=== PATIENT | male | born 1965 | race Caucasian/White ===

== ENCOUNTER 2018-05-14 04:14 | Inpatient (IN) | payer MEDICARE, MEDICAID ==
[2018-05-14] MEDS ORDERED: Sodium Chloride 0.9% 1,000 ML IV SCH (05:00)
[2018-05-14 05:21] LABS: ALT (SGPT) 9 U/L (8-55); AST (SGOT) 18 U/L (5-34); Albumin 1.9 g/dL (3.5-5.0); Alkaline Phosphatase 67 U/L (40-150); Anion Gap 11 mmol/L (10-20); BUN (Urea Nitrogen) 51 mg/dL (8.9-20.6); Bilirubin, Total 0.2 mg/dL (0.2-1.2); Calc. Creatinine Clearance 0 mL/min (70-130); Calcium 7.6 mg/dL (7.8-10.44); Carbon Dioxide 18 mmol/L (22-29); Chloride 110 mmol/L (98-107); Estimated GFR-MDRD 17; Globulin 2.1 g/dL (2.4-3.5); Glucose 84 mg/dL (70-105); Potassium 5.2 mmol/L (3.5-5.1); Sodium 134 mmol/L (136-145)
[2018-05-14 05:32] LABS: Mean Corpuscular HGB CONC 32.3 g/dL (32.0-36.0); Mean Corpuscular Hemoglobin 31.7 pg (27.0-31.0); Mean Corpuscular Volume 97.9 fl (80.0-94.0); RBC Distribution Width 17.5 % (11.5-14.5); Red Blood Cell (RBC) Count 2.83 mill/uL (4.70-6.10); White Blood Cell (WBC) Count 15.3 thou/uL (4.8-10.8)
[2018-05-14 05:54] LABS: Band 19 % (5-11); Lymphocytes 1 % (21-51); MDiff Complete? YES; Monocytes 1 % (0-10); Neutrophil 79 % (42-75); PLT Morphology Comment Appears Adequate; Platelet Count 123 thou/uL (130-400)
[2018-05-14] MEDS ORDERED: Dextrose 50% Abboject 50 ML SYRINGE ONE (06:10)
[2018-05-14] MEDS ORDERED: Insulin Regular 300 UNITS/3 ML VIAL ONE ×2 (06:10→06:27)
[2018-05-14] MEDS ORDERED: Cefepime 2 GM VIAL ONE (06:10)
[2018-05-14] MEDS ORDERED: Vancomycin HCl 1 GM in Premix Bag 1 BAG IVPB SCH (06:15)
[2018-05-14 07:11] LABS: Bilirubin Negative (Negative); Blood, Urine Moderate (Negative); Glucose, Urine (Dipstick) Negative (Negative); Leukocyte Large (Negative); Nitrite Positive (Negative); Protein, Urine (Dipstick) > or equal to 300 mg/dL (Neg-Trace); Urobilinogen 0.2 mg/dL (0.2-1.0)
[2018-05-14 07:26] LABS: Clarity Opaque (Clear); RBC/HPF 0-3 HPF (0-3)
[2018-05-14 07:27] LABS: Bacteria/HPF 3+ HPF (None Seen); Squamous Epithelial 0-3 HPF (0-3); Transitional Epithelial 0-3 HPF (0-3)
--- NOTE | 2018-05-14 08:35 | RAD ---
PORTABLE CHEST ONE VIEW: Date: 05-14-18 Time: 4:27 a.m. History: Sepsis and fever. FINDINGS/IMPRESSION: Comparison made with exam of the previous day. No significant change is seen since the previous day's exam. POS: [facility]
[2018-05-14 09:28] VITALS: BMI 20.5
[2018-05-14] MEDS ORDERED: cefTRIAXone\\ROCEPHIN 1 GM in Sodium Chloride 0.9% 100 ML IVPB SCH (10:00)
[2018-05-14] MEDS ORDERED: Azithromycin 500 MG in Sodium Chloride 0.9% 250 ML 250 ML IVPB SCH (11:00)
[2018-05-14] MEDS ORDERED: traMADol HCl 50 MG TAB PO PRN ×2 (11:11→11:16)
[2018-05-14] MEDS ORDERED: Dextrose 50% Abboject 50 ML SYRINGE SLOW IVP PRN (11:11)
[2018-05-14] MEDS ORDERED: cloNIDine 0.1 MG TAB PO PRN (11:11)
[2018-05-14] MEDS ORDERED: Ondansetron HCl/PF 4 MG/2 ML Vial IVP PRN (11:11)
[2018-05-14] MEDS ORDERED: Cepastat Lozenges 1 LOZ PO PRN (11:11)
[2018-05-14] MEDS ORDERED: Ondansetron ODT 4 MG TAB PO PRN (11:11)
[2018-05-14] MEDS ORDERED: HumaLOG 300 UNITS/3 ML VIAL SC PRN ×2 (11:11)
[2018-05-14] MEDS ORDERED: Simethicone Chewable 80 MG TAB PO PRN (11:11)
[2018-05-14] MEDS ORDERED: hydrALAZINE 20 MG/ML VIAL SLOW IVP PRN (11:11)
[2018-05-14] MEDS ORDERED: Dextrose 5% in Water 1,000 ML IV PRN (11:11)
[2018-05-14] MEDS ORDERED: PROVENTIL INHALER 6.7 G (200 INHALATIONS) INH PRN (11:30)
[2018-05-14] MEDS ORDERED: Cefepime 1 GM in Sodium Chloride 0.9% 100 ML IVPB SCH (12:00)
--- NOTE | 2018-05-14 12:53 | HP ---
DATE OF ADMISSION: 05/14/2018 PRIMARY CARE PHYSICIAN: Dr. Gil at [facility] in [place], [place]. CHIEF COMPLAINT: Fever, chills and cough. HISTORY OF PRESENT ILLNESS: This is a 52-year-old male who presents to [facility] in transfer from [facility] with fever, shaking chills, gene ral weakness, and body aches. The patient was noted with temperature up to 102 degrees Fahrenheit wi th shaking chills, increased cough, shortness of breath, and chest congestion. The patient currently a resident at [facility] convalescing from recent hospitalization in [place], [place] due to acute kidney injury in the context of chronic kidney disease stage 4-5. Family reports patient underwent transient hemodialysis sessions due to worsening renal function an d was subsequently transferred to [facility] for convalescence and general conditioning. The family also reports patient has basically been hospitalized or in halfway since 10/2017 with a series of medical issues, ranging from acute kidney injury to infections and ulc erations of the lower extremities. The patient recently underwent right [id number] amputation du e to severe diabetic foot ulcer and gangrenous changes. The patient currently receiving general care at [facility]; however, was noted in the last 24 hours with increased shor tness of breath, cough, and chest imaging showing evidence of a right-sided pneumonia with effusion. In the emergency room, the patient underwent general evaluation meeting sepsis criteria with elevate d temperature, tachypnea, tachycardia, and leukocytosis. Chest imaging was performed showing a right -sided infiltrate with effusion and urinalysis was suspicious for infectious process. The patient re ceived intravenous fluids as well as IV antibiotic therapy to include cefepime and vancomycin as well as insulin 10 units subcutaneously x1 and 1 amp of D50. The patient was transferred to the medical floor for further evaluation. PAST MEDICAL HISTORY: 1. Diabetes mellitus type 1 with chronic kidney disease stage 5. 2. Benign prostatic hyperplasia. 3. Right eye blindness secondary to diabetic retinopathy. 4. History of multiple decubitus ulcerations and gangrenous changes of the lower extremities. 5. Hypertension. 6. Hyperlipidemia. 7. Hypothyroidism. 8. Peripheral vascular disease. 9. Chronic anemia secondary to chronic kidney disease. 10. Chronic immunosuppressive therapy. 11. Smokeless tobacco use. PAST SURGICAL HISTORY: 1. Status post laser surgery to bilateral eyes. 2. Status post bilateral below the knee amputations. 3. Status post tonsillectomy. 4. Status post temporary hemodialysis catheter placement. 5. Status post left upper extremity AV fistula placement. 6. Status post renal and pancreatic transplant. CURRENT MEDICATIONS: 1. Albuterol sulfate 2 puffs inhaled q.4 hours p.r.n. 2. Amlodipine 5 mg p.o. daily. 3. Aspirin 81 mg 1 tab p.o. daily. 4. Calcium carbonate 500 mg 1-2 tabs p.o. q.i.d. p.r.n. 5. Clonidine 0.1 mg p.o. every 6 hours p.r.n. 6. Guaifenesin syrup 200 mg p.o. q.4 hours p.r.n. 7. Humulin R sliding scale t.i.d. with meals. 8. Levothyroxine 125 mcg p.o. daily. 9. Multivitamin 1 tab p.o. daily. 10. Protonix 40 mg 1 tab p.o. daily. 11. MiraLax 17 grams p.o. daily. 12. Pravachol 20 mg p.o. at bedtime. 13. Prednisone 10 mg p.o. daily. 14. Sertraline 100 mg p.o. daily. 15. Prograf 0.5 mg p.o. b.i.d. 16. Flomax 0.4 mg p.o. daily. 17. Tramadol 50 mg 1-2 tabs p.o. q.i.d. p.r.n. 18. Trazodone 50 mg p.o. at bedtime. ALLERGIES: 1. IODINE. 2. NSAIDS. 3. PENICILLIN. 4. SULFA. FAMILY HISTORY: Positive for diabetes mellitus. SOCIAL HISTORY: Resides in [facility]. Chews tobacco daily. No alcohol o r illicit drug use. Disabled. Nonambulatory status. Accompanied by his sister and mother in the spital. REVIEW OF SYSTEMS: The following complete review of systems was negative, unless otherwise mentioned in the HPI or below: Constitutional: Weight loss or gain, ability to conduct usual activities. Skin: Rash, itching. Eyes: Double vision, pain. ENT/Mouth: Nose bleeding, neck stiffness, pain, tenderness. Cardiovascular: Palpitations, dyspnea on exertion, orthopnea. Respiratory: Shortness of breath, wheezing, cough, hemoptysis, fever or night sweats. Gastrointestinal: Poor appetite, abdominal pain, heartburn, nausea, vomiting, constipation, or diarr hea. Genitourinary: Urgency, frequency, dysuria, nocturia. Musculoskeletal: Pain, swelling. Neurologic/Psychiatric: Anxiety, depression. Allergy/Immunologic: Skin rash, bleeding tendency. Otherwise negative except as stated per HPI. PHYSICAL EXAMINATION: VITAL SIGNS: Currently, blood pressure 137/73, pulse 101, respiratory rate 26, temperature 98.8 degr ees Fahrenheit, T-max of 100.7 degrees Fahrenheit, O2 saturation 96% on 1 liter per minute by nasal c annula. GENERAL APPEARANCE: This is a 52-year-old male, alert and oriented x3, pleasant, in mild t o moderate distress. HEENT: Pupils are equal, round, and reactive to light and accommodation. Extraocular muscles are in tact. No scleral icterus. No conjunctival injection. Nares patent. OP is clear. Poor dentition w ith advance periodontal disease. NECK: Supple, no cervical adenopathy, no thyromegaly, no carotid bruits, no JVD appreciated. Cervic al spine with full active and passive range of motion. No meningeal signs appreciated. CHEST: Coarse breath sounds bilaterally, right greater than left. Diminished breath sounds in the r ight base. Transmitted coarse sounds from the central and upper airway. CARDIOVASCULAR: S1 and S2 with tachycardia. No murmur, rub or gallop appreciated. ABDOMEN: Rounded, soft, nontender, and nondistended. Bowel sounds are positive in all four quadrant s. There is no hepatosplenomegaly, no abdominal bruits, no rebound or guarding appreciated. EXTREMITIES: Warm and dry with fair turgor. Bilateral below the knee amputations noted. Right lowe r extremity with stump intact and surgical incision with julien in place. Mild erythema to the medi al aspect of the incision. No expressible discharge. Pulses diminished at the popliteal arteries bi laterally. NEUROLOGIC: Cranial nerves II-XII are grossly intact. Not observed ambulatory during this exam. No gross focal deficits appreciated. PERTINENT LABORATORY DATA AND IMAGING DATA: Sodium 134, potassium 5.2, chloride 110, CO2 of 18, BUN 51, creatinine 3.87, estimated GFR of 17, glucose 84, lactic acid level 1.0, calcium 7.6. LFTs withi n normal limits. CBC showed white blood cell count of 15.3, hemoglobin 9, hematocrit 28, MCV 98, refugio telet count 123 with 79% neutrophils and 19% bands. Urinalysis shows positive protein, moderate bloo d, positive nitrite and leukocyte esterase with greater than 50 to too numerous to count WBCs per hig h powered field. Blood culture x1 dated 05/13/2018 showed no growth to date. Stool Hemoccult positi ve x1 on 05/14/2018. Portable chest x-ray dated 05/13/2018 showed bilateral pleural effusions, right greater than left with nonspecific density in the right lung base. EKG dated 05/14/2018 by my inter pretation shows sinus mechanism with heart rates in the 80s. Attenuated R waves noted in the precord ial leads. Normal axis. No acute ST-T wave changes appreciated. ASSESSMENT AND PLAN: 1. Sepsis. Patient will be admitted to the medical floor. Suspect secondarily to urinary tract bonita rce in addition to pneumonia. We will continue general sepsis protocol. Continue intravenous normal saline at 125 mL per hour. Continue cefepime 2 grams IV q.12 hours with additional vancomycin 1 gra m daily, with pharmacy to renally dose. Blood and urine cultures pending. 2. Healthcare associated pneumonia. We will continue aggressive pulmonary supportive measures. Duo Nebs q.4 hours p.r.n. Continue cefepime and vancomycin as outlined previously. Mucolytic agents and cough suppressants. Continue oxygen p.r.n. to maintain O2 saturations greater than or equal to 90%. 3. Urinary tract infection. The patient with intermittent bladder, self catheterization as likely u nderlying etiology. The patient also with a history of urinary retention. We will continue intermit tent self catheterizations and await final urine culture results. Continue cefepime 2 grams IV q.12 hours. Consider Urology consultation. 4. Acute kidney injury on chronic kidney disease stage 4-5. We will continue intravenous fluids as outlined previously. Avoid nephrotoxic agents and contrast media. Consider Nephrology consultation if renal function does not improve in the next 24 hours. 5. Hyperkalemia. Mild. Suspect mediated with current infection in conjunction with dehydration and chronic kidney disease. Continue IV fluids as outlined previously. Repeat potassium level in the a .m. 6. Chronic macrocytic anemia. We will continue serial hemoglobin and hematocrit monitoring. No cur rent evidence of active blood loss. Suspect multifactorial in conjunction with advanced chronic kidn ey disease. 7. Status post right [id number] amputation, stable currently. Continue local wound care and [facility] for evaluation. Pain control as clinically indicated. 8. Diabetes mellitus type 1, insulin requiring. Continue insulin sliding scale for reflexive covera ge. ADA diet. Serial Accu-Cheks. 9. Chronic Immunosuppression. Continue Prograf 0.5 mg p.o. b.i.d. Continue prednisone 10 mg p.o. d aily. 10. Prophylaxis. Hold sequential compression devices secondary to bilateral below the knee amputati ons. Heparin 5000 units subcutaneously b.i.d. Protonix 40 mg p.o. daily. Wound Care consult. 11. Code status is FULL. Surrogate medical decision maker is patient's sister.
[2018-05-14] MEDS: Acetaminophen 500 MG TAB PO PRN ×2 (13:11→23:19)
[2018-05-14] MEDS: Sodium Chloride 0.9% 1,000 ML IV SCH ×2 (16:24→21:08)
[2018-05-14] MEDS: Cefepime 1 GM in Sodium Chloride 0.9% 100 ML IVPB SCH (18:23)
[2018-05-14] MEDS ORDERED: Famotidine 20 MG TAB PO SCH (21:00)
[2018-05-14] MEDS ORDERED: guaiFENesin/DM ER PO SCH (21:00)
[2018-05-14] MEDS ORDERED: Cefepime 2 GM in Sodium Chloride 0.9% 100 ML IVPB SCH (21:00)
[2018-05-14] MEDS: traZODone HCl 50 MG TAB PO SCH (21:06)
[2018-05-14] MEDS: Famotidine 20 MG TAB PO SCH (21:06)
[2018-05-14] MEDS: Calcium Carbonate + Vit D 250 MG TAB PO SCH (21:06)
[2018-05-14] MEDS: Tacrolimus 0.5 MG CAP PO SCH (21:06)
[2018-05-14] MEDS: Heparin 5,000 UNITS/ML VIAL SC SCH (21:08)
[2018-05-14] MEDS: Benzonatate 100 MG CAP PO PRN (22:20)
[2018-05-14] MEDS ORDERED: guaiFENesin/Codeine Phosphate 200 mg/20 mg 10 ml UD Cup PO PRN (23:36)
[2018-05-14] MEDS ORDERED: guaiFENesin ER 600 MG TAB PO SCH (23:45)
[2018-05-15 05:12] LABS: ALT (SGPT) 9 U/L (8-55); AST (SGOT) 10 U/L (5-34); Albumin 1.8 g/dL (3.5-5.0); Alkaline Phosphatase 69 U/L (40-150); Anion Gap 10 mmol/L (10-20); BUN (Urea Nitrogen) 55 mg/dL (8.9-20.6); Bilirubin, Total 0.2 mg/dL (0.2-1.2); Calc. Creatinine Clearance 19 mL/min (70-130); Calcium 7.2 mg/dL (7.8-10.44); Carbon Dioxide 17 mmol/L (22-29); Chloride 109 mmol/L (98-107); Estimated GFR-MDRD 14; Globulin 1.9 g/dL (2.4-3.5); Glucose 78 mg/dL (70-105); Protein, Total 3.7 g/dL (6.0-8.3); Sodium 131 mmol/L (136-145)
[2018-05-15] MEDS: Vancomycin HCl 500 MG in Sodium Chloride 0.9% 100 ML IVPB SCH (05:53)
[2018-05-15] MEDS: Levothyroxine Sodium 125 MCG TAB PO SCH (05:53)
[2018-05-15] MEDS: Sodium Chloride 0.9% 1,000 ML IV SCH ×4 (05:55→22:55)
[2018-05-15] MEDS: Cefepime 1 GM in Sodium Chloride 0.9% 100 ML IVPB SCH ×2 (06:02→18:05)
[2018-05-15 06:12] LABS: Anisocytosis SLIGHT = 6-15 cells (100X) (0-5/hpf); Band 48 % (5-11); Hemoglobin 8.4 g/dL (14.0-18.0); MDiff Complete? YES; Mean Corpuscular HGB CONC 31.6 g/dL (32.0-36.0); Mean Corpuscular Hemoglobin 31.1 pg (27.0-31.0); Mean Corpuscular Volume 98.5 fl (80.0-94.0); Mean Platelet Volume 8.3 fL (7.4-10.4); Metamyelocyte 4 % (0-0); Monocytes 2 % (0-10); Neutrophil 46 % (42-75); PLT Morphology Comment Appears Decreased; Platelet Count 125 thou/uL (130-400); RBC Distribution Width 17.7 % (11.5-14.5); Red Blood Cell (RBC) Count 2.68 mill/uL (4.70-6.10); Schistocytes SLIGHT = 2-5 cells (100X) (0-1/hpf); Tear Drops SLIGHT = 2-5 cells (100X) (0-1/hpf); White Blood Cell (WBC) Count 10.9 thou/uL (4.8-10.8)
[2018-05-15] MEDS ORDERED: Sodium Chloride 0.9% 1,000 ML IV SCH ×2 (08:00→10:15)
[2018-05-15] MEDS: Tamsulosin HCl 0.4 MG CAP PO SCH (08:49)
[2018-05-15] MEDS: Amlodipine 5 MG TAB PO SCH (08:49)
[2018-05-15] MEDS: Multivitamin W/ Minerals 1 TAB PO SCH (08:49)
[2018-05-15] MEDS: guaiFENesin ER 600 MG TAB PO SCH ×2 (08:50→22:40)
[2018-05-15] MEDS: predniSONE 20 MG TAB PO SCH (08:52)
[2018-05-15] MEDS: Polyethylene Glycol 3350 17 GM Packet PO SCH (08:53)
[2018-05-15] MEDS ORDERED: Vancomycin HCl 1 GM in Sodium Chloride 0.9% 250 ML 250 ML IVPB SCH (09:00)
[2018-05-15] MEDS: Heparin 5,000 UNITS/ML VIAL SC SCH ×2 (09:11→22:41)
[2018-05-15] MEDS ORDERED: Hydrocortisone Sod Succ/PF 100 mg/2 ml Vial IVP SCH (09:30)
--- NOTE | 2018-05-15 09:50 | PDOC.PN ---
- Subjective Encounter Start Date: 05/15/18 Encounter Start Time: 09:00 Subjective: f/u for sepsis secondary to UTI and suspected PNA. Receiving Vancomycin -: and Cefepime and Ucx with GNR. Nsg reports hypotension confirmed with -: multiple readings. - Objective Resuscitation Status: Resuscitation Status FULL:Full Resuscitation MAR Reviewed: Yes Vital Signs & Weight: Vital Signs (12 hours) Temp Pulse Resp BP Pulse Ox 05/15/18 09:37 83 18 98 05/15/18 08:49 90 05/15/18 07:15 99.0 F 90 24 H 97 05/15/18 06:05 95 16 97 05/15/18 04:00 99.5 F 96 20 141/69 H 96 05/15/18 02:10 100 14 94 L 05/14/18 22:30 97 18 98 Weight Weight 147 lb 9 oz I&O: 05/14/18 05/15/18 05/16/18 06:59 06:59 06:59 Intake Total 1574 Output Total 5 Balance 1569 Result Diagrams: 05/15/18 04:10 05/15/18 15:09 Additional Labs: Accuchecks 05/15/18 05/14/18 05/14/18 05:17 20:07 16:25 POC Glucose 84 98 87 05/14/18 11:49 POC Glucose 68 L Microbiology 05/14/18 18:08 Stool C. difficile GDH Antigen & Toxins - Final 05/14/18 07:10 Stool - Pending Stool Occult Blood (MATTI) - Final 05/14/18 06:35 Urine voided Urine Culture - Preliminary Gram Negative Rakan 05/14/18 04:59 Venous blood - Right Arm Blood Culture - Preliminary Specimen has been received and culture in progress. No Growth to date. 05/14/18 04:55 Venous blood - Right Hand Blood Culture - Preliminary Specimen has been received and culture in progress. No Growth to date. Laboratory Tests 05/14/18 05/14/18 05/15/18 05:01 05:01 04:10 WBC 15.3 H Hgb 9.0 L Plt Count 123 L Neutrophils % (Manual) 79 H 46 Band Neuts % (Manual) 19 H 48 H Sodium 134 L Potassium 5.2 H Carbon Dioxide 18 L BUN 51 H Creatinine 3.87 H Radiology Reviewed by me: Yes (PCXR - bilat pleural effusion R>L) EKG Reviewed by me: Yes (NSR, no acute ST-T wave changes) Phys Exam - Physical Examination alert when questioned, answers questions, tachypnea HEENT: PERRLA, oral pharynx no lesions Neck: no nodes, no JVD, supple, full ROM coarse breath sounds bilat R>L, diminished in bases Respiratory: no wheezing S1, S2 Cardiovascular: RRR, no significant murmur, no rub, gallop Gastrointestinal: soft, non-tender, no distention, positive bowel sounds RUE edema No peripheral LE edema, Bilat BKA's intact answers questions when directly engaged Neurological: moves all 4 limbs Psychiatric: A&O x 3 Skin: no rash, normal turgor, cap refill <2 seconds Dx/Plan (1) Septic shock Code(s): A41.9 - SEPSIS, UNSPECIFIED ORGANISM; R65.21 - SEVERE SEPSIS WITH SEPTIC SHOCK Status: Acute Comment: Transfer to CCU given persistent hypotension, may need pressor support, Hydrocortisone 100mg IV now and 50mg IV q8h, check cortisol level, Critical care consult, continue Vancomycin and Cefepime (2) Pneumonia Code(s): J18.9 - PNEUMONIA, UNSPECIFIED ORGANISM Status: Acute Qualifiers: Pneumonia type: due to unspecified organism Laterality: right Lung location: lower lobe of lung Qualified Code(s): J18.1 - Lobar pneumonia, unspecified organism Comment: Suspected with possible gm + cocci, continue Cefepime and Vancomycin, healthcare associated given chcf care in SNF, check ABG and PCXR today (3) UTI (urinary tract infection) Status: Acute Comment: >100K GNR on initial Ucx, continue Cefepime currently and await final Ucx results, place Bunn catheter today for strict I/O's (4) ARASH (acute kidney injury) Code(s): N17.9 - ACUTE KIDNEY FAILURE, UNSPECIFIED Status: Acute Comment: Worsening despite treatment, likely ATN, consult Nephrology today, serial monitoring, avoid nephrotoxic meds, renal dosing of current abx (5) CKD (chronic kidney disease) stage 5, GFR less than 15 ml/min Code(s): N18.5 - CHRONIC KIDNEY DISEASE, STAGE 5 Status: Chronic Comment: See above, concern for needing HD (6) Metabolic acidosis Code(s): E87.2 - ACIDOSIS Status: Acute Comment: See above, may benefit from bicarbonate or HD (7) Hyponatremia Code(s): E87.1 - HYPO-OSMOLALITY AND HYPONATREMIA Status: Acute Comment: Likely due to increased volume replacement, serial monitoring (8) Hyperkalemia Code(s): E87.5 - HYPERKALEMIA Status: Acute Comment: Improved, multifactorial including ARASH - Plan bunn catheter, continue antibiotics, PT/OT, psychiatric social worker supervisor, respiratory therapy Transfer to CCU due to septic shock and potential for pressor support -: Continue Vancomycin and Cefepime -: Consult Nephrology and Pulmonology today -: 2D echo for EF determination -: EKG now, Troponin I q3h * PCXR pending * AM lab: CMP, CBC, Mg++, PO3
[2018-05-15 10:04] LABS: CO2 Tension 28.6 mmHg (35.0-45.0); O2 Tension (PaO2) 74.7 mmHg (80.0-100.0); pH, Arterial 7.34 (7.35-7.45)
[2018-05-15 10:05] LABS: Actual Bicarbonate (HCO3a) 14.9 mEq/L (22-28); Base Excess (BEa) -9.9 mEq/L (-2.0 to +3.0); Calcium, Ionized 1.1 mmol/L (1.12-1.30); Hemoglobin (Hb) 7.8 g/dL (14.0-18.0)
[2018-05-15 10:06] LABS: Puncture Site RRA
[2018-05-15] MEDS: Calcium Carbonate + Vit D 250 MG TAB PO SCH ×2 (10:09→22:41)
[2018-05-15 10:41] LABS: Magnesium 1.4 mg/dL (1.6-2.6); Phosphorus 3.6 mg/dL (2.3-4.7)
--- NOTE | 2018-05-15 11:52 | RAD ---
CHEST 1 VIEW: Date: 05/15/18 HISTORY: Dyspnea. Follow-up. COMPARISON: 05/14/18. FINDINGS: Cardiac silhouette magnified and partially obscured by increasing right pleural fluid. Atelectasis ri ght lung results in slight rightward shift of the mediastinum. Pulmonary vasculature remains engorged . Left pleural fluid has increased slightly. monitoring engineer leads overlie the chest. IMPRESSION: Increasing bilateral pleural fluid. POS: [facility]
[2018-05-15] MEDS: Tacrolimus 0.5 MG CAP PO SCH ×2 (12:01→22:40)
[2018-05-15 12:42] LABS: Troponin I 0.035 ng/mL (< 0.028)
--- NOTE | 2018-05-15 13:40 | CON ---
DATE OF CONSULTATION: 05/15/2018 CONSULTING PHYSICIAN: Dr. Smith. REASON FOR CONSULTATION: Acute kidney injury, history of renal transplant immunosuppression. HISTORY OF PRESENT ILLNESS: This is a 52-year-old male with history of chronic kidney disease on kelvin al transplant, recently had few dialysis, type 2 diabetes, BPH, hypertension, hyperlipidemia, hypothy roidism, peripheral vascular disease, chronic anemia, who came to the hospital with fever, chills, an d cough. He was in rehab and was transferred over here. His creatinine was found to be 4.37, which was 3.8 and his baseline is around 2.8-3.2. The patient was also very hypotensive on review of the r ecords. His blood pressure was 70s/30s and 60s/30s. The patient is feeling better now. Blood press ure was 90s. He is on IV fluids. He was transferred to the critical care unit this morning. The pa eric is on Prograf and prednisone. PAST MEDICAL HISTORY: Positive for type 1 diabetes, chronic kidney disease stage 5, status post meño l transplant, benign prostatic hypertrophy, right eye blindness, history of multiple decubitus ulcers , hypertension, hyperlipidemia, hypothyroidism, peripheral vascular disease, anemia, chronic immunosu ppression. PAST SURGICAL HISTORY: Laser surgery, bilateral below knee amputation, post-tonsillectomy, dialysis catheter placement, AV fistula placement, pancreatic and renal transplant. HOME MEDICATIONS: Albuterol, amlodipine, aspirin, calcium carbonate, clonidine, guaifenesin syrup, H umulin R, levothyroxine, multivitamin, Protonix, MiraLax, Pravachol, prednisone, sertraline, Prograf, Flomax, tramadol and trazodone. ALLERGIES: To IODINE, NSAIDS, PENICILLIN, AND SULFA. FAMILY HISTORY: Positive for diabetes. SOCIAL HISTORY: He chews tobacco. No alcohol or illicit drug abuse. REVIEW OF SYSTEMS: The following complete review of systems was negative, unless otherwise mentioned in the HPI or below: Constitutional: Weight loss or gain, ability to conduct usual activities. Skin: Rash, itching. Eyes: Double vision, pain. ENT/Mouth: Nose bleeding, neck stiffness, pain, tenderness. Cardiovascular: Palpitations, dyspnea on exertion, orthopnea. Respiratory: Shortness of breath, wheezing, cough, hemoptysis, fever or night sweats. Gastrointestinal: Poor appetite, abdominal pain, heartburn, nausea, vomiting, constipation, or diarr hea. Genitourinary: Urgency, frequency, dysuria, nocturia. Musculoskeletal: Pain, swelling. Neurologic/Psychiatric: Anxiety, depression. Allergy/Immunologic: Skin rash, bleeding tendency. PHYSICAL EXAMINATION: GENERAL: This is a well-built male in no apparent distress. VITAL SIGNS: Temperature 97.7, pulse 91, respiratory 18, blood pressure 104/24. HEENT: Atraumatic, normocephalic. Oral mucosa is moist. NECK: Supple. CARDIOVASCULAR: S1, S2 heard. Rate and rhythm regular. RESPIRATORY: Clear. GASTROINTESTINAL: Abdomen is soft. MUSCULOSKELETAL: No tenderness, no edema. DERMATOLOGIC: No skin rash. NEUROLOGIC: Alert, awake. PSYCHIATRIC: Mood and affect normal. LABORATORY DATA: Hemoglobin is 8.4, potassium 5.0, BUN is 55, creatinine is 4.3, and albumin is 1.8. ASSESSMENT AND PLAN: 1. Acute kidney injury most likely from hypoperfusion and low effective circulating volume. His blo od pressure was in 70s/30s, so we will continue supportive care including antibiotics, rule out infec tion and continue hydration as tolerated. 2. Hyperkalemia, stable. No acute indication for dialysis. 3. Hyponatremia. 4. Metabolic acidosis. Lactate was 1.0. 5. Severe hypoalbuminemia. 6. Anemia. We will monitor, rule out any bleed. 7. History of renal transplant. Continue Prograf. We will check Prograf level. We will also invol ve ID to rule out any other further infections including CMV. Plan is to continue antibiotics. ID consult and hydration as tolerated. Continue immunosuppression with close monitoring of the levels. No indication for dialysis. Family is at the bedside including his parents and updated about the plan. We will follow. Thank you for the consult.
[2018-05-15] MEDS ORDERED: Magnesium 2 GM/NS 0.9% 100 ML 2 GM in Premix Bag 1 BAG IVPB SCH (13:45)
--- NOTE | 2018-05-15 14:27 | EKG ---
Test Reason : Blood Pressure : / mmHG Vent. Rate : 087 BPM Atrial Rate : 087 BPM P-R Int : 114 ms QRS Dur : 082 ms QT Int : 368 ms P-R-T Axes : 041 011 023 degrees QTc Int : 442 ms Normal sinus rhythm Low voltage QRS Cannot rule out Anterior infarct (cited on or before 03-MAR-2008) Abnormal ECG When compared with ECG of 14-MAY-2018 04:25, (Unconfirmed) No significant change was found Confirmed by DUKE SANDERSON ([id number]) on 05/15/2018 2:26:59 PM Referred By: ULISSES Confirmed By:DUKE SANDERSON
[2018-05-15 15:41] LABS: Anion Gap 13 mmol/L (10-20); BUN (Urea Nitrogen) 54 mg/dL (8.9-20.6); Calc. Creatinine Clearance 19 mL/min (70-130); Carbon Dioxide 15 mmol/L (22-29); Chloride 110 mmol/L (98-107); Estimated GFR-MDRD 15; Glucose 103 mg/dL (70-105); Sodium 133 mmol/L (136-145)
[2018-05-15 15:47] LABS: Troponin I 0.017 ng/mL (< 0.028)
[2018-05-15] MEDS: Hydrocortisone Sod Succ/PF 100 mg/2 ml Vial IVP SCH (18:06)
--- NOTE | 2018-05-15 18:25 | CON ---
DATE OF CONSULTATION: 05/15/2018 Mr. Bro is a very pleasant, but unfortunate 52-year-old male who has all of the complications as sociated with having diabetes for almost his entire life. Apparently, recently he had a [id number] amputation on the right in [place] and was discharged to [facility] and then transferred over here for fever and a drop in his blood pressure. He has clinically improved after transfer to the unit with volume resuscitation today. PAST MEDICAL HISTORY: Remarkable for, 1. Diabetes. 2. Chronic kidney disease, recently transiently dialyzed. 3. History of renal transplantation in [place]. 4. History of benign prostatic hypertrophy. 5. History of blindness of his right eye. 6. History of decubitus ulcers. 7. Hypertension. 8. Lipid disorder. 9. Hypothyroidism. 10. Diabetic vascular disease. 11. Status post both lower extremity amputations below the knee. 12. History of tonsillectomy. 13. History of vascular access placement. MEDICATIONS: Prior to admission, he was on albuterol, amlodipine, aspirin, calcium, clonidine, guaif enesin, insulin, Synthroid, Protonix, MiraLax, Pravachol, prednisone, sertraline, Prograf, Flomax, tr amadol, and trazodone. ALLERGIES: Reports allergies to IODINE, NONSTEROIDALS, PENICILLIN, and SULFA. FAMILY HISTORY: Positive for diabetes. SOCIAL HISTORY: He is a nonsmoker, nondrinker. He does chew tobacco. He does not use drugs. REVIEW OF SYSTEMS: Ten points are otherwise negative. PHYSICAL EXAMINATION: GENERAL: He is very pleasant, cooperative. VITAL SIGNS: Blood pressure is 99/60, heart rate 83, respiratory rates of 20s, oximetry is 97%. GENERAL: He is in no distress. HEENT: Sclerae are anicteric. His extraocular movements are full. NECK: Supple. LUNGS: Clear anteriorly. HEART: Regular rhythm. S1 and S2 are normal. ABDOMEN: Soft. EXTREMITIES: His incision is not erythematous in his right lower extremity. LABORATORY AND X-RAY FINDINGS: Chest radiograph shows bilateral effusions. Microbiology shows gram- negative kenneth in his urine. Blood cultures are negative so far. White count 10.9, hemoglobin 8.4, platelets 125. Sodium 131, potassium 5, chloride 109, bicarbonate 17, BUN 55, creatinine 4.3. Urinalysis shows significant proteinuria, too numerous to count white ce lls. IMPRESSION: 1. Febrile illness, possibly secondary to urinary tract infection. 2. ? nephrotic range proteinuria. He has greater than 300 mg/dL protein in his urine. 3. Pleural effusions, most likely associated with his renal failure. Coexisting cardiomyopathy cert ainly could be a factor as well. There is no echocardiogram so far. A cortisol level was done this morning, but he was already on steroids, so this would not be reliable . I suspect the urinary tract infection is the source of his fever. I doubt he has pneumonia. I will be happy to follow with the other physician's caring for him. His antibiotics will be simplified onc e pathogen has been identified. Given his recent long hospitalization, there is pretty good chance t his would be a drug-resistant organism. He does however appear to be clinically improved. 70-minute consult, greater than 50% of the time was spent in coordinating care on the unit.
[2018-05-15] MEDS: traZODone HCl 50 MG TAB PO SCH (22:40)
[2018-05-15] MEDS: Famotidine 20 MG TAB PO SCH (22:40)
--- NOTE | 2018-05-16 01:43 | CON ---
DATE OF CONSULTATION: 05/15/2018 REASON FOR CONSULTATION: Sepsis. HISTORY OF PRESENT ILLNESS: A 52-year-old patient with a history of type 1 diabetes mellitus, henry swanson, which has been complicated by nephropathy, prior renal and pancreatic transplant, peripheral vascular disease which culminated in bilateral BK amputations recently at [facility] and [facility] in [place]. During that visit, he developed acute renal failure and required temporary dialysis replacement, whi ch now has been discontinued. He was transferred to [facility] and has been there si [facility] the beginning of May. On 05/06, the nursing staff started performing in and out catheterization because of urinary retention and then on the day of admission, developed fever, general malaise and temperature of 102, cough, chest congestion. He was transferred to the hospital. Initial findings w ith a blood pressure 130/70, pulse 101, respirations 26, temperature 98.8 and then 100.7, O2 sat 96%. He appeared alert and oriented, mild distress. The chest with coarse breath sounds. Heart exam sh owed no murmurs. Abdomen is soft and nontender. LABORATORY DATA: Initial labs: creatinine 3.87. Lactic acid 1.0, calcium 7.6. CBC with white cell count 15.3, hemoglobin 9, platelet count 123,000, 19% bands. Urinalysis with greater than 50 wbc's p er high-power field. The patient was admitted to the ICU and given vancomycin and cefepime. Currently, he is still in the ICU, he is stable, not on pressors and is breathing on his own. He is sleepy, we will wake up. Est ablish eye contact and answer questions, but falls back asleep immediately. He has had no diarrhea. An indwelling Anand has been inserted. The patient has a peripheral IV access in the right upper ex tremity. He denies headaches. He has severe visual impairment from his diabetes. No sore throat, n o chest pain, no cough, no back pain, and no abdominal pain. PAST MEDICAL HISTORY: Type 1 diabetes mellitus, peripheral vascular disease, bilateral BKAs, renal p ancreatic transplantation, decubitus ulcers, hypertension, hyperlipidemia, hypothyroidism. PAST SURGICAL HISTORY: Laser surgery to retina; BKA surgery; tonsillectomy; hemodialysis catheter pl acement; left upper extremity AV fistula placement, which is still functional. MEDICATIONS: Currently on antimicrobials mentioned above, albuterol, Norvasc, clonidine, Pepcid, glu cagon, Mucinex, hydralazine, Solu-Cortef. At home, he takes a low dose of prednisone for his transpl ants, ondansetron, pantoprazole, PEG, sertraline, simethicone, tacrolimus. FAMILY HISTORY: Noncontributory. PHYSICAL EXAMINATION: VITAL SIGNS: T-max 102 on arrival, he is currently afebrile. His blood pressure 140/60, pulse 79, O 2 sat 98%. EXTREMITIES: Patient has stump for the right BKA, still with stitches, appears dry. No drainage. E rythema in the left BKA stump over the knee, shallow ulceration, irregular shaped in the left side of the presacral region. HEENT: No lymphadenopathy. The right eye intraocular media was opacified and the eyes obviously, am aurotic. Left eye has a reactive pupil about 2 mm. NECK: Supple. No jugular vein distention. LUNGS: With symmetric air entry. HEART: S1, S2, regular rate without murmurs. ABDOMEN: Soft, without tenderness. No bladder distention. GENITOURINARY: The urine is clear. MUSCULOSKELETAL: No joint inflammatory activity. Popliteals are faintly palpable. NEUROLOGIC: He is drowsy, but arousable, follows commands, appears to be oriented. LABORATORY AND DIAGNOSTIC DATA: White cell count was 15, now 10, hemoglobin 8.4, MCV 98, platelets 1 25,000. Arterial blood gas pH 7.34, pCO2 of 20, pO2 of 74 and sodium 133, creatinine 4.32, which is higher than his admit creatinine of 3.87, albumin was 1.9, AST 10, ALT 9, alkaline phosphatase 69, bi lirubin 0.2. Urinalysis with greater than 50 wbc's. Microbiology with gram negative kenneth isolated fr om urine culture, C. diff antigen and toxin negative. Two sets of blood cultures thus far negative. Chest x-ray with pleural fluid, but no infiltrates. ASSESSMENT: 1. Pancreatic renal transplant with worsening renal function temporarily on dialysis at [facility] in [place] after the [id number] amputation on the right side. 2. Transfer from rehab because of concern with infection, possible sepsis. 3. Urinary retention with recent initiation of in and out catheterization at rehabilitation. 4. Abnormal urinalysis with neutrophilia in the peripheral blood. DISCUSSION: Differential diagnosis includes invasive UTI is the most likely scenario with possible p yelonephritis. He does have in and out catheterization requirement because of neurogenic bladder. W e will need to evaluate his CT stone protocol to evaluate for obstruction, hydronephrosis, and the bl adder. Continue antimicrobial therapy as currently. Likely be able to discontinue vancomycin tomorr ow. Hopefully, organism will not have a resistant profile that would mandate IV therapy for continua tion of treatment. Continue monitoring blood cultures to rule out bacteremia.
[2018-05-16] MEDS: Hydrocortisone Sod Succ/PF 100 mg/2 ml Vial IVP SCH ×2 (02:51→10:38)
[2018-05-16] MEDS: Levothyroxine Sodium 125 MCG TAB PO SCH (05:23)
[2018-05-16] MEDS: Cefepime 1 GM in Sodium Chloride 0.9% 100 ML IVPB SCH ×2 (05:23→18:41)
[2018-05-16 05:40] LABS: Vancomycin, Trough 18.1 ug/mL
[2018-05-16] MEDS: Vancomycin HCl 500 MG in Sodium Chloride 0.9% 100 ML IVPB SCH (06:09)
[2018-05-16 07:37] LABS: ALT (SGPT) 10 U/L (8-55); AST (SGOT) 9 U/L (5-34); Albumin 2.1 g/dL (3.5-5.0); Alkaline Phosphatase 86 U/L (40-150); Anion Gap 14 mmol/L (10-20); BUN (Urea Nitrogen) 58 mg/dL (8.9-20.6); Bilirubin, Total 0.2 mg/dL (0.2-1.2); Calc. Creatinine Clearance 19 mL/min (70-130); Calcium 7.5 mg/dL (7.8-10.44); Carbon Dioxide 14 mmol/L (22-29); Chloride 112 mmol/L (98-107); Estimated GFR-MDRD 14; Globulin 2.4 g/dL (2.4-3.5); Glucose 117 mg/dL (70-105); Potassium 4.9 mmol/L (3.5-5.1); Protein, Total 4.5 g/dL (6.0-8.3); Sodium 135 mmol/L (136-145)
[2018-05-16] MEDS: Calcium Carbonate + Vit D 250 MG TAB PO SCH ×2 (08:33→21:44)
[2018-05-16] MEDS: Tamsulosin HCl 0.4 MG CAP PO SCH (08:34)
[2018-05-16] MEDS: guaiFENesin ER 600 MG TAB PO SCH ×2 (08:34→21:28)
[2018-05-16] MEDS: Multivitamin W/ Minerals 1 TAB PO SCH (08:34)
[2018-05-16] MEDS: Heparin 5,000 UNITS/ML VIAL SC SCH ×2 (08:35→21:29)
[2018-05-16] MEDS: Tacrolimus 0.5 MG CAP PO SCH ×2 (08:35→21:29)
[2018-05-16] MEDS: Polyethylene Glycol 3350 17 GM Packet PO SCH ×2 (08:35→08:42)
[2018-05-16 09:02] LABS: Hemoglobin 9.4 g/dL (14.0-18.0); Mean Corpuscular HGB CONC 31.1 g/dL (32.0-36.0); Mean Corpuscular Hemoglobin 30.7 pg (27.0-31.0); Mean Platelet Volume 8.8 fL (7.4-10.4); Platelet Count 133 thou/uL (130-400); RBC Distribution Width 17.9 % (11.5-14.5); Red Blood Cell (RBC) Count 3.04 mill/uL (4.70-6.10); White Blood Cell (WBC) Count 10.8 thou/uL (4.8-10.8)
--- NOTE | 2018-05-16 09:27 | PRG ---
DATE OF SERVICE: 05/16/2018 He says he feels better. PHYSICAL EXAMINATION: VITAL SIGNS; He is afebrile, heart rate 71, respiratory rate 20, oximetry is 97 on room air, blood p ressure 115/33. LUNGS: Lungs are Clear. HEART: Regular rhythm. ABDOMEN; Abdomen is soft. EXTREMITIES: His wound to his right lower extremity still looks good. Gram-negative kenneth in his urine, still does not have species identification yet. LABORATORY DATA: White count 10.8, hemoglobin 9.4, platelets 133,000. Sodium 135, potassium 4.9, chloride 112, bicarbonate 14, BUN 58, creatinine 4.38, which is essentiall y unchanged. IMPRESSION: 1. Acute on chronic renal failure with recent transient dialysis. 2. Probable nephrotic syndrome. 3. Hyperchloremic acidosis. 4. Pleural effusion secondary nephrotic syndrome. 5. Diastolic dysfunction by echo. 6. 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 7. Hypoalbuminemia secondary to massive proteinuria. PLAN: Continue supportive care. In my opinion he appears to be stable enough [facility].
[2018-05-16 09:33] LABS: Band 14 % (5-11); Burr Cells MODERATE= 6-15 cells (100X) (0-1/hpf); Eosinophils 3 % (0-10); MDiff Complete? YES; Monocytes 2 % (0-10); Neutrophil 81 % (42-75); PLT Morphology Comment Appears Adequate; Polychromasia SLIGHT = 2-3 cells (100X) (0-2/hpf)
[2018-05-16] MEDS: predniSONE 20 MG TAB PO SCH (10:10)
--- NOTE | 2018-05-16 10:23 | PDOC.PN ---
- Subjective Encounter Start Date: 05/16/18 Encounter Start Time: 10:00 Subjective: f/u for septic shock with improved BP today with supportive mgmt. Pt feels -: better overall and awake, talkative and ate breakfast. Nsg reports BP -: stable. - Objective Resuscitation Status: Resuscitation Status FULL:Full Resuscitation MAR Reviewed: Yes Vital Signs & Weight: Vital Signs (12 hours) Temp Pulse Resp Pulse Ox 05/16/18 07:57 98 F 91 20 97 05/16/18 07:50 97 05/16/18 07:00 98 F 05/16/18 06:15 87 16 98 05/16/18 04:00 98.2 F 05/16/18 02:11 92 12 98 05/16/18 00:00 98.0 F Weight Admit Weight 147 lb Weight 147 lb 9 oz Most Recent Monitor Data Heart Rate from ECG 93 NIBP 115/33 NIBP BP-Mean 58 Respiration from ECG 6 SpO2 98 I&O: 05/15/18 05/16/18 05/17/18 06:59 06:59 06:59 Intake Total 1574 2689 Output Total 5 968 65 Balance 1569 1721 -65 Result Diagrams: 05/17/18 04:42 05/17/18 04:42 Additional Labs: Accuchecks 05/16/18 05/15/18 05/15/18 05:13 21:10 16:27 POC Glucose 116 H 129 H 107 05/15/18 11:05 POC Glucose 83 Microbiology 05/14/18 18:08 Stool C. difficile GDH Antigen & Toxins - Final 05/14/18 07:10 Stool - Pending Stool Occult Blood (MATTI) - Final 05/14/18 06:35 Urine voided Urine Culture - Preliminary Pseudomonas aeruginosa 05/14/18 06:35 Urine voided Urine Culture - Preliminary Gram Negative Rakan 05/14/18 04:59 Venous blood - Right Arm Blood Culture - Preliminary Specimen has been received and culture in progress. No Growth to date. 05/14/18 04:55 Venous blood - Right Hand Blood Culture - Preliminary Specimen has been received and culture in progress. No Growth to date. Laboratory Tests 05/14/18 05/14/18 05/15/18 05:01 05:01 04:10 WBC 15.3 H 10.9 H Hgb 9.0 L 8.4 L Plt Count 123 L 125 L Neutrophils % (Manual) 79 H 46 Band Neuts % (Manual) 19 H 48 H Sodium 134 L Potassium 5.2 H Carbon Dioxide 18 L BUN 51 H Creatinine 3.87 H Vancomycin Trough 05/15/18 05/16/18 15:09 05:12 WBC Hgb Plt Count Neutrophils % (Manual) Band Neuts % (Manual) Sodium Potassium Carbon Dioxide 15 L BUN Creatinine 4.32 H Vancomycin Trough 18.1 Radiology Reviewed by me: Yes (2D echo - EF 60-65%, Grade I/III diast dysfxn) EKG Reviewed by me: Yes (Tele - SR in 's) Phys Exam - Physical Examination Constitutional: NAD HEENT: PERRLA, sclera anicteric, oral pharynx no lesions Neck: no nodes, no JVD, supple, full ROM coarse sounds bilat R>L Respiratory: no wheezing S1, S2 Cardiovascular: RRR, no significant murmur, no rub, gallop Gastrointestinal: soft, non-tender, no distention, positive bowel sounds RUE edema LLE surgical incision intact, julien intact Neurological: non-focal, normal sensation, moves all 4 limbs Psychiatric: A&O x 3 Skin: no rash, normal turgor, cap refill <2 seconds Dx/Plan (1) Septic shock Code(s): A41.9 - SEPSIS, UNSPECIFIED ORGANISM; R65.21 - SEVERE SEPSIS WITH SEPTIC SHOCK Status: Acute Comment: Continue Vancomycin and Cefepime, appears Pseudomonas sepsis by Ucx, resolving (2) Pneumonia Code(s): J18.9 - PNEUMONIA, UNSPECIFIED ORGANISM Status: Acute Qualifiers: Pneumonia type: due to unspecified organism Laterality: right Lung location: lower lobe of lung Qualified Code(s): J18.1 - Lobar pneumonia, unspecified organism Comment: Suspected with possible gm + cocci, continue Cefepime and Vancomycin, healthcare associated given halfway care in SNF, continue general pulm support , currently on room air (3) UTI (urinary tract infection) Status: Acute Comment: >100K Pseudomonas on initial Ucx, continue Cefepime currently and await final Ucx results, place Anand catheter today for strict I/O 's (4) ARASH (acute kidney injury) Code(s): N17.9 - ACUTE KIDNEY FAILURE, UNSPECIFIED Status: Acute Comment: Likely ATN, consult Nephrology today, serial monitoring, avoid nephrotoxic meds , renal dosing of current abx, no current indication for HD (5) CKD (chronic kidney disease) stage 5, GFR less than 15 ml/min Code(s): N18.5 - CHRONIC KIDNEY DISEASE, STAGE 5 Status: Chronic Comment: See above, concern for needing HD (6) Metabolic acidosis Code(s): E87.2 - ACIDOSIS Status: Acute Comment: See above, may benefit from bicarbonate or HD (7) Hyponatremia Code(s): E87.1 - HYPO-OSMOLALITY AND HYPONATREMIA Status: Acute Comment: Likely due to increased volume replacement, serial monitoring (8) Hyperkalemia Code(s): E87.5 - HYPERKALEMIA Status: Acute Comment: Improved, multifactorial including ARASH - Plan continue antibiotics, PT/OT, social media community manager Stabilizing currently -: Continue IVF's but decrease to 100ml/h -: Continue Cefepime and Vancomycin pending final Ucx sensitivities -: D/C Hydrocortisone -: Resume Prednisone 10mg daily * AM lab: CMP, CBC * Likely transfer to medical floor later today
[2018-05-16] MEDS: Sodium Chloride 0.9% 1,000 ML IV SCH ×2 (10:38→21:26)
[2018-05-16] MEDS: traZODone HCl 50 MG TAB PO SCH (21:28)
[2018-05-16] MEDS: Famotidine 20 MG TAB PO SCH (21:28)
--- NOTE | 2018-05-16 21:59 | PRG ---
DATE OF SERVICE: 05/16/2018 SUBJECTIVE: Patient was seen and examined at bedside and overnight events noted. Patient denies any shortness of breath or chest pain or palpitation. No history of nausea or vomiting or diarrhea or fever or chills or cramps. OBJECTIVE: GENERAL: This is a well-built male, in no acute distress VITAL SIGNS: Temperature 97.9, pulse 90, respiratory rate 19, blood pressure . HEENT: Atraumatic, normocephalic. Oral mucosa is moist NECK: Supple CARDIOVASCULAR: S1S2 heard, Rate and rhythm regular. RESPIRATORY: Clear to auscultation. GASTROINTESTINAL: Abdomen is soft. MUSCULOSKELETAL: No tenderness. No edema. DERMATOLOGIC: No skin rash. NEUROLOGIC: Alert and awake and oriented x3. No focal neurologic deficits. Moving all the extremit ies. PSYCHIATRIC: Mood and affect normal. LABORATORY DATA: Potassium is 4.9, BUN 58, creatinine is 4.3. ASSESSMENT AND PLAN: 1. Acute kidney injury most likely from sepsis seems like renal function is getting better. 2. History of chronic kidney disease stage 4, stable renal transplant. 3. Hyperkalemia, better. 4. Metabolic acidosis. 5. Severe hypoalbuminemia. 6. Anemia. The patient's blood pressure is better. Overall, renal function is stable with good urine output. Plan is to monitor for dialysis.
[2018-05-16] MEDS ORDERED: Sodium Chloride 0.9% 1,000 ML IV SCH (23:15)
[2018-05-17 05:24] LABS: ALT (SGPT) 13 U/L (8-55); AST (SGOT) 23 U/L (5-34); Alkaline Phosphatase 88 U/L (40-150); Anion Gap 12 mmol/L (10-20); BUN (Urea Nitrogen) 61 mg/dL (8.9-20.6); Bilirubin, Total Less than 0.2 mg/dL (0.2-1.2); Calc. Creatinine Clearance 20 mL/min (70-130); Calcium 7.4 mg/dL (7.8-10.44); Carbon Dioxide 13 mmol/L (22-29); Chloride 115 mmol/L (98-107); Estimated GFR-MDRD 16; Globulin 2.3 g/dL (2.4-3.5); Glucose 100 mg/dL (70-105); Potassium 4.3 mmol/L (3.5-5.1); Protein, Total 4.3 g/dL (6.0-8.3); Sodium 136 mmol/L (136-145)
[2018-05-17 05:32] LABS: Band 7 % (5-11); Hemoglobin 8.9 g/dL (14.0-18.0); Lymphocytes 3 % (21-51); MDiff Complete? YES; Macrocytosis SLIGHT = 6-15 cells (100X) (0-5/hpf); Mean Corpuscular Hemoglobin 31.2 pg (27.0-31.0); Mean Corpuscular Volume 97.5 fl (80.0-94.0); Mean Platelet Volume 8.2 fL (7.4-10.4); Monocytes 1 % (0-10); Neutrophil 89 % (42-75); PLT Morphology Comment Appears Adequate; Platelet Count 141 thou/uL (130-400); Red Blood Cell (RBC) Count 2.86 mill/uL (4.70-6.10); White Blood Cell (WBC) Count 12.2 thou/uL (4.8-10.8)
[2018-05-17] MEDS: Cefepime 1 GM in Sodium Chloride 0.9% 100 ML IVPB SCH ×2 (06:20→18:19)
[2018-05-17] MEDS: Levothyroxine Sodium 125 MCG TAB PO SCH (06:21)
--- NOTE | 2018-05-17 07:56 | PRG ---
DATE OF SERVICE: 05/17/2018 SUBJECTIVE: The patient says he feels fairly decent except for cough. PHYSICAL EXAMINATION: VITAL SIGNS: His temperature is 97.5, pulse 83, blood pressure 92/48, O2 sat 100%. HEENT: Unremarkable. NECK: No JVD. LUNGS: Coarse rhonchi. CARDIAC: S1 and S2 regular. ABDOMEN: Soft, nontender. EXTREMITIES: Bilateral amputations. LABORATORY DATA: White blood cell count 12.2, hematocrit 27.9, platelet count 141. Sodium 136, pota ssium 4.3, chloride 115, CO2 13, BUN 61, creatinine 4.0, glucose 100. ASSESSMENT: 1. Acute on chronic renal failure. 2. Nephrotic syndrome. 3. Non-anion gap metabolic acidosis. 4. Pleural effusion secondary to nephrotic syndrome. 5. Diastolic dysfunction. 6. Diabetes mellitus. PLAN: Can move out to the floor, continue antibiotics and care per Internal Medicine and Nephrology.
[2018-05-17] MEDS: Vancomycin HCl 500 MG in Sodium Chloride 0.9% 100 ML IVPB SCH (08:18)
[2018-05-17] MEDS: Tamsulosin HCl 0.4 MG CAP PO SCH (08:23)
[2018-05-17] MEDS: Heparin 5,000 UNITS/ML VIAL SC SCH ×2 (08:23→20:07)
[2018-05-17] MEDS: Multivitamin W/ Minerals 1 TAB PO SCH (08:23)
[2018-05-17] MEDS: guaiFENesin ER 600 MG TAB PO SCH ×2 (08:24→20:06)
[2018-05-17] MEDS: predniSONE 20 MG TAB PO SCH (08:24)
[2018-05-17] MEDS: Tacrolimus 0.5 MG CAP PO SCH ×2 (08:25→20:06)
[2018-05-17] MEDS: Calcium Carbonate + Vit D 250 MG TAB PO SCH ×2 (08:25→20:06)
[2018-05-17] MEDS: Polyethylene Glycol 3350 17 GM Packet PO SCH (08:26)
[2018-05-17] MEDS ORDERED: Sodium Bicarbonate 150 MEQ in Dextrose 5% in Water 1,000 ML IV SCH (10:15)
[2018-05-17] MEDS: Sodium Chloride 0.9% 1,000 ML IV SCH (10:36)
--- NOTE | 2018-05-17 15:27 | PDOC.PN ---
- Subjective Encounter Start Date: 05/17/18 Encounter Start Time: 15:10 Subjective: f/u for sepsis and ARASH/CKD. Overall feeling better but some persistent -: coughing. No fever or chills. Tolerating po. Transferred from CCU to floor. - Objective Resuscitation Status: Resuscitation Status FULL:Full Resuscitation MAR Reviewed: Yes Vital Signs & Weight: Vital Signs (12 hours) Temp Pulse Resp BP Pulse Ox 05/17/18 14:24 80 20 05/17/18 11:51 82 28 H 100 05/17/18 10:53 97.8 F 82 16 97 05/17/18 10:38 97.8 F 82 16 95/35 L 97 05/17/18 08:00 97.7 F 87 18 100 05/17/18 07:32 100 05/17/18 07:28 84 18 100 05/17/18 04:00 97.5 F L Weight Admit Weight 147 lb Weight 147 lb 9 oz Most Recent Monitor Data Heart Rate from ECG 84 NIBP 109/30 NIBP BP-Mean 75 Respiration from ECG 15 SpO2 99 I&O: 05/16/18 05/17/18 05/18/18 06:59 06:59 06:59 Intake Total 2689 5423 640 Output Total 968 1209 325 Balance 1721 4214 315 Result Diagrams: 05/17/18 04:42 05/17/18 04:42 Additional Labs: Accuchecks 05/17/18 05/17/18 05/16/18 11:12 06:48 21:48 POC Glucose 91 92 121 H 05/16/18 16:44 POC Glucose 138 H Microbiology 05/14/18 18:08 Stool C. difficile GDH Antigen & Toxins - Final 05/14/18 07:10 Stool - Pending Stool Occult Blood (MATTI) - Final 05/14/18 06:35 Urine voided Urine Culture - Final Pseudomonas aeruginosa 05/14/18 06:35 Urine voided Urine Culture - Preliminary Pseudomonas aeruginosa 05/14/18 06:35 Urine voided Urine Culture - Preliminary Gram Negative Rakan 05/14/18 04:59 Venous blood - Right Arm Blood Culture - Preliminary Specimen has been received and culture in progress. No Growth to date. 05/14/18 04:55 Venous blood - Right Hand Blood Culture - Preliminary Specimen has been received and culture in progress. No Growth to date. Laboratory Tests 05/14/18 05/14/18 05/15/18 05:01 05:01 04:10 WBC 15.3 H 10.9 H Hgb 9.0 L 8.4 L Plt Count 123 L 125 L Neutrophils % (Manual) 79 H 46 Band Neuts % (Manual) 19 H 48 H Sodium 134 L Potassium 5.2 H Carbon Dioxide 18 L BUN 51 H Creatinine 3.87 H Vancomycin Trough 05/15/18 05/16/18 05/16/18 15:09 05:12 05:12 WBC Hgb Plt Count Neutrophils % (Manual) Band Neuts % (Manual) Sodium Potassium Carbon Dioxide 15 L BUN Creatinine 4.32 H 4.38 H Vancomycin Trough 18.1 05/16/18 05/17/18 05:12 04:42 WBC Hgb Plt Count Neutrophils % (Manual) 81 H 89 H Band Neuts % (Manual) 14 H 7 Sodium Potassium Carbon Dioxide BUN Creatinine Vancomycin Trough Phys Exam - Physical Examination Constitutional: NAD HEENT: PERRLA, sclera anicteric, oral pharynx no lesions Neck: no nodes, no JVD, supple, full ROM coarse sounds R>L Respiratory: no wheezing S1, S2 Cardiovascular: RRR, no significant murmur, no rub, gallop Gastrointestinal: soft, non-tender, no distention, positive bowel sounds RUE edema positional Bilat BKA's, intact surgical incision of LLE Musculoskeletal: pulses present Neurological: non-focal, normal sensation, moves all 4 limbs Psychiatric: normal affect, A&O x 3 Skin: no rash, normal turgor, cap refill <2 seconds Dx/Plan (1) Septic shock Code(s): A41.9 - SEPSIS, UNSPECIFIED ORGANISM; R65.21 - SEVERE SEPSIS WITH SEPTIC SHOCK Status: Acute Comment: Continue Vancomycin and Cefepime, appears Pseudomonas sepsis by Ucx, resolving (2) Pneumonia Code(s): J18.9 - PNEUMONIA, UNSPECIFIED ORGANISM Status: Acute Qualifiers: Pneumonia type: due to unspecified organism Laterality: right Lung location: lower lobe of lung Qualified Code(s): J18.1 - Lobar pneumonia, unspecified organism Comment: Suspected with possible gm + cocci, continue Cefepime and d/c Vancomycin, healthcare associated given residential care in SNF, continue general pulm support, currently on room air (3) UTI (urinary tract infection) Status: Acute Comment: >100K Pseudomonas on initial Ucx, continue Cefepime as currently sensitive (4) ARASH (acute kidney injury) Code(s): N17.9 - ACUTE KIDNEY FAILURE, UNSPECIFIED Status: Acute Comment: Likely ATN, consult Nephrology today, serial monitoring, avoid nephrotoxic meds , renal dosing of current abx, no current indication for HD (5) CKD (chronic kidney disease) stage 5, GFR less than 15 ml/min Code(s): N18.5 - CHRONIC KIDNEY DISEASE, STAGE 5 Status: Chronic Comment: See above, concern for needing HD (6) Metabolic acidosis Code(s): E87.2 - ACIDOSIS Status: Acute Comment: Sodium bicarbonate infusion per Nephrology (7) Hyponatremia Code(s): E87.1 - HYPO-OSMOLALITY AND HYPONATREMIA Status: Acute Comment: Likely due to increased volume replacement, serial monitoring, improved (8) Hyperkalemia Code(s): E87.5 - HYPERKALEMIA Status: Acute Comment: Improved, multifactorial including ARASH - Plan continue antibiotics, PT/OT, social media manager Stable overall -: D/C Vancomycin -: Continue Cefepime another 24-48h -: Saline lock IVF's after sodium bicarbonate gtt -: AM lab: BMP * Likely back to SNF in 48h
--- NOTE | 2018-05-17 17:40 | PRG ---
DATE OF SERVICE: 05/17/2018 SUBJECTIVE: Patient was seen and examined at bedside and overnight events noted. Patient denies any shortness of breath or chest pain or palpitation. No history of nausea or vomiting or diarrhea or f ever or chills or cramps. OBJECTIVE: GENERAL: This is a well-built male in no apparent distress. VITAL SIGNS: Temperature 97.9, pulse 90, respiratory rate 18, blood pressure 114/72. HEENT: Atraumatic, normocephalic. Oral mucosa is moist. NECK: Supple. CARDIOVASCULAR: S1, S2 heard. Rate and rhythm regular. RESPIRATORY: Clear to auscultation. GASTROINTESTINAL: Abdomen is soft. MUSCULOSKELETAL: No tenderness. No edema. DERMATOLOGIC: No skin rash. NEUROLOGIC: Alert and awake and oriented x3. No focal neurologic deficits. Moving all the extremiti es. PSYCHIATRIC: Mood and affect normal. LABORATORY DATA: Potassium is 4.3, BUN 61, creatinine is 4.09. ASSESSMENT AND PLAN: 1. Acute kidney injury on chronic kidney disease with history of renal transplant. Renal function s eems to be stabilizing and getting better. Avoid nephrotoxins. 2. History of renal transplant. Continue medications. Prograf level pending. 3. Metabolic acidosis, anemia and hyperkalemia stable. 4. Metabolic acidosis. We will add bicarbonate drip for a liter. 5. Avoid nephrotoxins. 6. Severe hypoalbuminemia. Encourage protein intake.
[2018-05-17] MEDS: Famotidine 20 MG TAB PO SCH (20:06)
[2018-05-17] MEDS: traZODone HCl 50 MG TAB PO SCH (20:06)
[2018-05-18 05:42] LABS: Vancomycin, Trough 22.4 ug/mL
[2018-05-18 05:50] LABS: Calcium 7.7 mg/dL (7.8-10.44); Chloride 114 mmol/L (98-107); Potassium 4.2 mmol/L (3.5-5.1); Sodium 137 mmol/L (136-145)
[2018-05-18] MEDS: Levothyroxine Sodium 125 MCG TAB PO SCH (06:04)
[2018-05-18] MEDS: Cefepime 1 GM in Sodium Chloride 0.9% 100 ML IVPB SCH ×2 (06:04→17:11)
[2018-05-18 06:11] LABS: Carbon Dioxide 13 mmol/L (22-29)
[2018-05-18 06:35] LABS: Anion Gap 14 mmol/L (10-20); BUN (Urea Nitrogen) 61 mg/dL (8.9-20.6); Calc. Creatinine Clearance 21 mL/min (70-130); Estimated GFR-MDRD 16; Glucose 94 mg/dL (70-105)
[2018-05-18] MEDS: Tacrolimus 0.5 MG CAP PO SCH ×2 (08:06→21:05)
[2018-05-18] MEDS: Calcium Carbonate + Vit D 250 MG TAB PO SCH ×2 (08:06→21:02)
[2018-05-18] MEDS: predniSONE 20 MG TAB PO SCH (08:07)
[2018-05-18] MEDS: Multivitamin W/ Minerals 1 TAB PO SCH (08:07)
[2018-05-18] MEDS: Polyethylene Glycol 3350 17 GM Packet PO SCH (08:07)
[2018-05-18] MEDS: Tamsulosin HCl 0.4 MG CAP PO SCH (08:07)
[2018-05-18] MEDS: guaiFENesin ER 600 MG TAB PO SCH ×2 (08:09→21:04)
[2018-05-18] MEDS: Heparin 5,000 UNITS/ML VIAL SC SCH ×2 (08:16→21:05)
[2018-05-18] MEDS: Amlodipine 5 MG TAB PO SCH (11:08)
[2018-05-18 11:09] LABS: Tacrolimus 4.2 ng/mL (2.0-20.0)
--- NOTE | 2018-05-18 12:56 | PRG ---
DATE OF SERVICE: 05/18/2018 SUBJECTIVE: The patient is doing well, had no acute complaints except for cough. PHYSICAL EXAMINATION: VITAL SIGNS: On exam, temperature is 97.8, pulse 81, respirations 18, O2 sat 98%, blood pressure 133 /72. HEENT: Unremarkable. NECK: No JVD. CHEST: Clear. CARDIAC: S1 and S2, regular. ABDOMEN: Soft. EXTREMITIES: Bilateral amputations. LABORATORY DATA: Sodium 137, potassium 4.2, chloride 114, CO2 of 13, BUN 61, creatinine 4.0, glucose 94. ASSESSMENT: 1. Acute on chronic renal failure. 2. Non-anion gap metabolic acidosis secondary to renal failure. 3. Pleural effusions. 4. Diastolic dysfunction. PLAN: He seems to be doing well on the floor. He is continuing antibiotics. Renal is following his kidney function.
--- NOTE | 2018-05-18 13:29 | PRG ---
DATE OF SERVICE: 05/18/2018 SUBJECTIVE: Patient was seen and examined at bedside and overnight events noted. Patient denies any shortness of breath or chest pain or palpitation. No history of nausea or vomiting or diarrhea or f ever or chills or cramps. OBJECTIVE: GENERAL: This is a well-built male in no apparent distress. VITAL SIGNS: Temperature 98.7, pulse 80, respiratory rate 18, blood pressure 133/72. HEENT: Atraumatic, normocephalic. Oral mucosa is moist. NECK: Supple. CARDIOVASCULAR: S1, S2 heard. Rate and rhythm regular. RESPIRATORY: Clear to auscultation. GASTROINTESTINAL: Abdomen is soft. MUSCULOSKELETAL: No tenderness. No edema. DERMATOLOGIC: No skin rash. NEUROLOGIC: Alert and awake and oriented x3. No focal neurologic deficits. Moving all the extremit ies. PSYCHIATRIC: Mood and affect normal. LABORATORY DATA: Potassium is 4.2, BUN 61, creatinine is 4.0. ASSESSMENT AND PLAN: 1. Acute kidney injury on chronic kidney disease stage 4 with renal transplant. Continue on home me dication. 2. History of renal transplant. Continue transplant medications. Prograf level is acceptable at 4. 2. 3. Metabolic acidosis. We will add bicarbonate. 4. Hyperkalemia, better. 5. Anemia. We will monitor. Plan is to add sodium bicarbonate. Continue home medications and supportive care.
[2018-05-18] MEDS: Sodium Bicarbonate Tab 325 MG TAB PO SCH ×2 (15:12→21:04)
--- NOTE | 2018-05-18 15:45 | PDOC.PN ---
- Subjective Encounter Start Date: 05/18/18 (f/u pneumonia) Encounter Start Time: 15:44 Subjective: Pt is without complaints, denies any chest pain or difficulty breathing -: reports the cough continues - Objective Resuscitation Status: Resuscitation Status FULL:Full Resuscitation Vital Signs & Weight: Vital Signs (12 hours) Temp Pulse Resp BP BP BP Pulse Ox 05/18/18 13:53 85 18 97 05/18/18 11:16 81 18 98 05/18/18 11:12 97.8 F 81 20 133/72 96 05/18/18 11:08 81 133/72 05/18/18 08:05 98.5 F 62 20 93 L 05/18/18 08:03 20 129/71 100 05/18/18 07:26 84 20 100 05/18/18 07:15 97.9 F 85 18 102/51 L 100 05/18/18 04:34 98.3 F 87 20 100 Weight Admit Weight 147 lb Weight 147 lb 9 oz Most Recent Monitor Data Heart Rate from ECG 84 NIBP 109/30 NIBP BP-Mean 75 Respiration from ECG 15 SpO2 99 I&O: 05/17/18 05/18/18 05/19/18 06:59 06:59 06:59 Intake Total 5423 1470 Output Total 1209 1075 Balance 4214 395 Result Diagrams: 05/17/18 04:42 05/18/18 05:08 Additional Labs: Accuchecks 05/18/18 05/18/18 05/17/18 11:05 05:35 20:04 POC Glucose 79 90 128 H 05/17/18 16:28 POC Glucose 121 H Phys Exam - Physical Examination Constitutional: NAD Respiratory: no wheezing, no rales, no rhonchi decreased breath sounds at right base Cardiovascular: RRR, no significant murmur Gastrointestinal: soft, non-tender, no distention, positive bowel sounds Musculoskeletal: no edema bilateral BKA with julien/sutures intact right side Neurological: non-focal, moves all 4 limbs Psychiatric: normal affect Deviation from normal: dressing on right arm, and some edema of right arm that he reports is -: constant Dx/Plan (1) Pneumonia Code(s): J18.9 - PNEUMONIA, UNSPECIFIED ORGANISM Status: Acute Qualifiers: Pneumonia type: due to unspecified organism Laterality: right Lung location: lower lobe of lung Qualified Code(s): J18.1 - Lobar pneumonia, unspecified organism Comment: Suspected with possible gm + cocci, continue Cefepime and d/c Vancomycin, healthcare associated given group home care in SNF, continue general pulm support, currently on room air (2) ARASH (acute kidney injury) Code(s): N17.9 - ACUTE KIDNEY FAILURE, UNSPECIFIED Status: Acute (3) Hyponatremia Code(s): E87.1 - HYPO-OSMOLALITY AND HYPONATREMIA Status: Acute (4) Metabolic acidosis Code(s): E87.2 - ACIDOSIS Status: Acute (5) Septic shock Code(s): A41.9 - SEPSIS, UNSPECIFIED ORGANISM; R65.21 - SEVERE SEPSIS WITH SEPTIC SHOCK Status: Acute Comment: Continue Vancomycin and Cefepime, appears Pseudomonas sepsis by Ucx, resolving (6) UTI (urinary tract infection) Status: Acute Comment: >100K Pseudomonas on initial Ucx, continue Cefepime as currently sensitive (7) CKD (chronic kidney disease) stage 5, GFR less than 15 ml/min Code(s): N18.5 - CHRONIC KIDNEY DISEASE, STAGE 5 Status: Chronic - Plan * Pt remains stable on cefepime for both HCAP and UTI - continue this. * Appreciate Nephro monitoring renal function - on transplant anti-rejection meds * Appreciate Pulm following along - resp status stable * Blood sugars are stable - continue insulin with meals if needed. Is not on long-acting medications * * Anemia stable - likely secondary to both CKD and infection * * dvt prophy - heparin * gi prophy - not indicated * code status full * * reviewed plan of care with patient and his family, no questions or further needs at end of eval.
[2018-05-18] MEDS: Famotidine 20 MG TAB PO SCH (21:04)
[2018-05-18] MEDS: traZODone HCl 50 MG TAB PO SCH (21:05)
[2018-05-19] MEDS ORDERED: Guaifenesin DM 100-10/5 ML UDCUP PO PRN (04:58)
[2018-05-19 05:36] LABS: Band 5 % (5-11); Hemoglobin 9.2 g/dL (14.0-18.0); Lymphocytes 6 % (21-51); MDiff Complete? YES; Mean Corpuscular HGB CONC 32.6 g/dL (32.0-36.0); Mean Corpuscular Hemoglobin 31.5 pg (27.0-31.0); Mean Corpuscular Volume 96.7 fl (80.0-94.0); Mean Platelet Volume 8.8 fL (7.4-10.4); Monocytes 4 % (0-10); Neutrophil 85 % (42-75); PLT Morphology Comment Appears Decreased; Platelet Count 116 thou/uL (130-400); RBC Distribution Width 18.4 % (11.5-14.5); Red Blood Cell (RBC) Count 2.92 mill/uL (4.70-6.10); White Blood Cell (WBC) Count 6.9 thou/uL (4.8-10.8)
[2018-05-19 05:39] LABS: Anion Gap 13 mmol/L (10-20); BUN (Urea Nitrogen) 56 mg/dL (8.9-20.6); Calc. Creatinine Clearance 21 mL/min (70-130); Calcium 8.1 mg/dL (7.8-10.44); Carbon Dioxide 15 mmol/L (22-29); Chloride 114 mmol/L (98-107); Estimated GFR-MDRD 16; Glucose 103 mg/dL (70-105); Potassium 4.4 mmol/L (3.5-5.1); Sodium 138 mmol/L (136-145)
[2018-05-19] MEDS: Cefepime 1 GM in Sodium Chloride 0.9% 100 ML IVPB SCH (05:55)
[2018-05-19] MEDS: Levothyroxine Sodium 125 MCG TAB PO SCH (05:55)
[2018-05-19] MEDS: guaiFENesin ER 600 MG TAB PO SCH (08:28)
[2018-05-19] MEDS: Tamsulosin HCl 0.4 MG CAP PO SCH (08:28)
[2018-05-19] MEDS: Multivitamin W/ Minerals 1 TAB PO SCH (08:28)
[2018-05-19] MEDS: Heparin 5,000 UNITS/ML VIAL SC SCH (08:29)
[2018-05-19] MEDS: Amlodipine 5 MG TAB PO SCH (08:29)
[2018-05-19] MEDS: predniSONE 20 MG TAB PO SCH (08:29)
[2018-05-19] MEDS: Polyethylene Glycol 3350 17 GM Packet PO SCH (08:30)
[2018-05-19] MEDS: Calcium Carbonate + Vit D 250 MG TAB PO SCH (08:46)
[2018-05-19] MEDS: Tacrolimus 0.5 MG CAP PO SCH (08:46)
[2018-05-19] MEDS: Sodium Bicarbonate Tab 325 MG TAB PO SCH ×2 (08:46→15:01)
--- NOTE | 2018-05-19 10:37 | DIS ---
DATE OF ADMISSION: 05/14/2018 DATE OF DISCHARGE: 05/19/2018 DISCHARGE DIAGNOSES: 1. Urinary tract infection with Pseudomonas, improved. 2. Status post septic shock secondary to #2. 3. Right lower lobe healthcare-associated pneumonia, suspected with gram positive cocci, improved. 4. Acute kidney injury on chronic kidney disease stage 5, improved. 5. Metabolic acidosis secondarily to chronic kidney disease, improved. 6. Hyponatremia, improved. 7. Hyperkalemia, resolved. 8. 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 9. Diabetes mellitus type 1, stable. 10. Chronic immunosuppression, status post renal transplant. CONSULTATIONS: Dr. Oliver with Nephrology Service. Dr. Taylor with Pulmonology Service. Dr. Mcgregor with Infectious Disease service. PERTINENT LABORATORY DATA AND X-RAY FINDINGS: Creatinine ranged between 3.87-4.38, estimated GFR ran ging between 14-17, potassium ranged between 4.2-5.2, sodium ranged between 131-138, CO2 ranged betwe en 13-18. Lactic acid level 1.0, serum cortisol level 21.1. CBC showed a white blood cell count ran ging between 6.9-15.3. Tacrolimus level 4.2, 05/15/2018. Blood cultures x2 from 05/14/2018 showed n o growth at 48 hours. Urine culture dated 05/14/2018 showed greater than 100,000 colonies of Pseudom onas species, sensitive to cefepime. Stool Hemoccult dated 05/14/2018, positive x1. C. difficile an tigen and toxin, 05/14/2018, negative. Portable chest x-ray dated 05/13/2018 showed bilateral pleura l effusions, right greater than left with increased density in the right lung base. A 2D transthorac ic echocardiogram dated 05/15/2018 showed ejection fraction of 60%-65%. Grade I/III diastolic dysfun ction. Mild to moderate tricuspid valve regurgitation. Right ventricular systolic pressure estimate d 40 mmHg. HOSPITAL COURSE: The patient was initially admitted after presenting with fever, chills, and cough w ith chest imaging concerning for right lower lobe pneumonia and urinary tract infection. The patient was noted with sepsis criteria and placed on aggressive IV fluid hydration and started on broad spec trum IV antibiotic therapy with cefepime and vancomycin. The patient with likely healthcare-associat ed pneumonia, treated with bronchodilator therapy in addition to mucolytics and oxygen supplementatio n. The patient with a history of urinary retention, undergoing intermittent bladder, self-catheteriz ations, placed on IV cefepime with urine culture showing greater than 100,000 colonies of Pseudomonas species. The patient continued on this therapy throughout the hospital course with overall improvem ent in symptomatology. The patient was noted with septic shock and required transfer to the Critical Care Unit for approximately 48 hours, stabilizing with general supportive measures and IV antibiotic therapy. The patient was evaluated by the Nephrology Service due to acute kidney injury on chronic kidney disease stage 5 and placed on sodium bicarbonate therapy. The patient continued IV fluids thr oughout the hospital course with overall stabilization of renal function with excellent urine output. The patient was resumed on his chronic immunosuppressive therapy including prednisone and Prograf. The patient clinically stabilized and was monitored on the medical floor without further decompensat ion. The patient was noted with edema of the penile region and scrotum, likely due to dependent hortencia a and increased IV fluids. The patient may need additional evaluation on an outpatient basis by the Urology service. The patient will continue Anand catheter drainage for approximately 72 hours after discharge. Current recommendations are to continue cefepime for 72 hours intravenously after dischar ge. Overall, the patient did remain clinically stable and I have examined the patient at the time of discharge and discussed pertinent laboratory findings and follow up instructions. The patient verba lized understanding and agreement, ready for discharge on 05/19/2018. DISCHARGE MEDICATIONS: 1. Acetaminophen 500 mg p.o. q.4-6 hours p.r.n. 2. ProAir RespiClick 2 puffs inhaled q.4 hours p.r.n. 3. Norvasc 5 mg p.o. daily. 4. Enteric-coated aspirin 81 mg p.o. daily. 5. Calcium carbonate 500 mg 1-2 tabs p.o. q.i.d. p.r.n. 6. Cefepime 1 gram IV q.12 hours until 05/22/2018. 7. Clonidine 0.1 mg p.o. q.6 hours p.r.n. systolic blood pressure over 170. 8. Mucinex ER 600 mg p.o. b.i.d. 9. Heparin 5000 units subcutaneously b.i.d. 10. Insulin sliding scale. 11. Levothyroxine 125 mcg p.o. daily. 12. Multivitamin 1 tab p.o. daily. 13. Protonix 40 mg p.o. daily. 14. MiraLax 17 grams p.o. daily. 15. Pravachol 20 mg p.o. at bedtime. 16. Prednisone 10 mg p.o. daily. 17. Sertraline 100 mg p.o. daily. 18. Simethicone 80 mg p.o. t.i.d. p.r.n. 19. Sodium bicarbonate 1300 mg p.o. t.i.d. 20. Prograf 0.5 mg p.o. b.i.d. 21. Tamsulosin 0.4 mg p.o. daily. 22. Tramadol 50 mg 1-2 tabs p.o. q.i.d. p.r.n. 23. Trazodone 50 mg p.o. at bedtime. FOLLOWUP: The patient may follow up with his primary care provider, Dr. Gil at [facility] after discharge from inpatient rehabilitation. The patient may also [facility] after discharge. CONDITION ON DISCHARGE: Fair. ACTIVITY: ad jose. SPECIAL INSTRUCTIONS: Recommend continuation of Anand catheter for approximately 72 hours. The josh ent may need a urology evaluation for penile and glans edema on an outpatient basis. DIET: ADA. CODE STATUS: FULL. DISPOSITION: Discharge to [facility], 05/19/2018. Total time preparing and coordinating discharge 45 minutes.
--- NOTE | 2018-05-19 13:50 | CT ---
CT OF ABDOMEN AND PELVIS: DATE: 05/19/18. COMPARISON: None available. HISTORY: Urosepsis, history of pancreatic and kidney transplant secondary to complications of diabetes. TECHNIQUE: Serial axial CT imaging at 5 mm intervals from the lung bases through the pubic symphysis without con trast. Coronal reformatted imaging obtained. FINDINGS: There are lobulated areas of pleural density in the region of the interlobar fissure on the left sugg esting a complicated/loculated left pleural effusion, incompletely imaged. There are increased linea r densities noted within both lung bases. There is a moderate-sized, incompletely imaged, slightly loculated pleural effusion on the right with consolidation/collapse of the right lower lobe. Lack of contrast media limits assessment of the viscera, bowel vascular structures, and for lymphaden opathy. There is hazy increased density throughout the subcutaneous fat of the abdomen/pelvis, consistent wit h anasarca. There is a Anand catheter extending into the urinary bladder. The urinary bladder wall appears irregular and thick-walled, a nonspecific finding. Layering hyperdensity within the gallblad irwin suggests cholelithiasis. Limited assessment of the liver, spleen, and adrenal glands is unremark able. Pancreas appears grossly unremarkable. The kidneys are markedly atrophic. Limited assessment of the arterial structures demonstrates extensive atherosclerotic calcification of the abdominal aor ta and its branches throughout the abdomen/pelvis. There is prominent debris seen within the stomach. There rectum is filled and expanded with stool. This may signify a degree of fecal impaction. A poorly assessed renal transplant is seen in the left lower quadrant. There is a probable fluid col lection associated with the lower pole of the transplanted kidney along its inferior margin, poorly a ssessed on this examination, best seen on axial image 86, measuring approximately 4.4 x 2.6 cm. Perh aps an ultrasound would be beneficial to further evaluate this. No evidence for bowel obstruction is seen. Stranding of the mesenteric fat is noted, evidence of srinivas sarca. Osseous structures demonstrate no acute findings. IMPRESSION: 1. Findings suggesting loculated bilateral pleural effusions, left greater than right, nonspecific a nd incompletely assessed on this exam. 2. Evidence of anasarca. 3. Findings suggesting cholelithiasis. 4. Stomach is slightly distended and filled with debris. 5. Findings suggesting an eccentric nonspecific fluid collection associated with the lower pole of t he left lower quadrant renal transplant. Please consider ultrasound for further assessment. 6. Nonspecific wall thickening of the urinary bladder, which may be inflammatory/infectious or neopl astic in nature. Clinical correlation is required. CODE T POS: MICKEY
[2018-05-19] MEDS: Benzonatate 100 MG CAP PO PRN (15:01)
[2018-05-19 17:04] VITALS: BP 133/60; TEMP 98.2
[2018-05-19] MEDS ORDERED: Tamsulosin HCl 0.4 MG CAP PO SCH (21:00)
--- NOTE | 2018-05-19 21:53 | PRG ---
DATE OF SERVICE: 05/19/2018 SUBJECTIVE: Patient was seen and examined at bedside and overnight events noted. Patient denies any shortness of breath or chest pain or palpitation. No history of nausea or vomiting or diarrhea or f ever or chills or cramps. The patient complains of penile swelling and discomfort. OBJECTIVE: GENERAL: This is a well-built male, in no apparent distress. VITAL SIGNS: Temperature 98.2, pulse 82, respirations 18, blood pressure 133/60. HEENT: Atraumatic, normocephalic, oral mucosa is moist. NECK: Supple. CARDIOVASCULAR: S1, S2 heard, rate and rhythm regular. RESPIRATORY: Clear to auscultation. GASTROINTESTINAL: Phimosis present. MUSCULOSKELETAL: No tenderness, no edema. DERMATOLOGIC: No skin rash. NEUROLOGIC: Alert and awake and oriented x3. No focal neurologic deficits. Moving all the extremit ies. PSYCHIATRIC: Mood and affect normal. LABORATORY DATA: Potassium is 4.4, BUN is 56, creatinine is 3.9. ASSESSMENT AND PLAN: 1. Acute kidney injury on chronic kidney disease, stage 4 with history of renal transplant. Renal f unction is stable. Avoid nephrotoxins. 2. History of renal transplant. Continue medications. Prograf level is stable. 3. Metabolic acidosis. 4. Hyperkalemia 5. Anemia, stable. 6. Phimosis. We will have Urology consult. We will follow.
--- NOTE | 2018-05-19 21:59 | PRG ---
DATE OF SERVICE: 05/19/2018 SUBJECTIVE: Mr. Bro is having difficulty urinating. He has a residual of 374 and he had been d eclining Anand catheter until now. He denies any shortness of breath, cough intermittently. No vomi ting, no abdominal pain. PHYSICAL EXAMINATION: VITAL SIGNS: Temperature max 98.4, blood pressure 130/60, pulse 83, respirations 18-20, and O2 sat 1 00. SKIN: Shows the right BKA stump site with a dry appearance, a few stitches in place, but no dehiscen ce and the opacified right orbit, last pupillary reactions are intact. Oral cavity is moist. LUNGS: With somewhat coarse breath sounds with a few rhonchi. HEART: S1, S2, regular rate. ABDOMEN: Soft, not distended, question of bladder distention. EXTREMITIES: He is awake, follows commands, does not appear in distress. LABORATORY DATA: Sodium 138, creatinine 3.91. Liver profile was normal. Albumin 2.0, last urinalys is from a few days ago. Microbiology with P. aeruginosa with resistance to quinolones, meropenem, Zo syn, tobramycin, susceptibility to cefepime, ceftazidime, and amikacin. Last White cell count 6.9, h emoglobin 9.2, platelets 116,000 with 85% neutrophils. The patient had an abdomen and pelvis CT, which is suggestive of loculated bilateral pleural effusion s, anasarca, cholelithiasis, distended stomach filled with debris also an eccentric fluid collection in the lower pole with left lower quadrant, renal transplant, and nonspecific wall thickening of the urinary bladder. DISCUSSION: The patient is currently receiving cefepime. ASSESSMENT: Pancreatic renal transplant with worsening renal function and then improvement, bilatera l below knee amputation with most recent one a few weeks ago and transferred from rehab because of co ncern with infection, possible sepsis. Also, urinary retention, which is persistent and we will requ wendi replacement of Anand catheter. The patient took a complete course of treatment with Maxipime on 05/29/2018. The pleural effusions appear to be loculated by the images on the abdomen and pelvis CT scan and patient may need a dedicated CT of chest.
--- NOTE | 2018-05-20 08:50 | CON ---
DATE OF CONSULTATION: 05/19/2018 Consultation was requested for phimosis; however, the patient does not have this as he is already circumcised. He does have significant penile edema which doesn't seem to bother him. HISTORY OF PRESENT ILLNESS: The patient came in with a concern of urosepsis. Initially, the patient said he had another infection, but on thinking about it, he felt like this is his first urinary tract infection. He has an indwelling catheter and the reports of [facility] starting on 05/06/2018 given concerns for retention. He only has had to have a catheter for this and after his prior right BKA, otherwise he was voiding on his own every 1-4 hours depending on hydration with nocturia x0-1. He did admit to hesitation, weak stream, and variable emptying and reports he does have some sensation of fullness when he needs to void. He has been on tamsulosin for several years, and he is not taking anything other than that to help him void that he recalls. He has no gross hematuria, no stones, and no other leakage. PAST MEDICAL HISTORY: Type 1 diabetes, anemia of chronic disease, hypertension , high cholesterol, peripheral vascular disease, hypothyroid, right eye blindness, multiple decubiti, chronic immunosuppression given his transplant status. Renal insufficiency despite the transplant as he has had to be dialyzed a few times this year, but not for at least over a month per the patient. PAST SURGICAL HISTORY: kidney and pancreas transplant (2009);Eye surgery, bilateral BKAs with the most recent of which being on the right this year. Left upper extremity fistula that never worked, tonsillectomy. MEDICATIONS: Numerous and do not include blood thinners, but do include Norvasc 5 mg, calcium, vitamin D supplement, clonidine 0.1 mg as needed, Pepcid 20 mg, hydralazine 10 mg as needed, insulin, Synthroid 125 mcg, Protonix, prednisone 10 mg daily, sertraline 100 mg daily, sodium bicarbonate, Prograf 0.5 mg b.i.d., tamsulosin 0.4 mg daily, Ultram as needed, and trazodone at bedtime. ALLERGIES: PENICILLIN, SULFA, and he does not know what happens when he takes these. IODINE and NSAIDs are also listed. SOCIAL HISTORY: He is currently transferred from a rehab facility, where he has been since his last BKA. He chews tobacco still and has for at least 30 years. He does not smoke cigarettes and never has. Prior to the rehabilitation , he was living on his own. His bowels have been okay and he thinks he had a bowel movement yesterday. He has no chest pain, no shortness of breath, no cough. He had a colonoscopy in the past 5 years that was unremarkable without polyps, not sure whether he has been screened for prostate cancer. He does have some depression, for which he is taking medication. FAMILY HISTORY: Mother is alive and relatively well. Father of heart attack in his 70s, not sure whether he had diabetes, no significant cancer in the family that he is aware. PHYSICAL EXAMINATION: VITAL SIGNS: He has been afebrile. Blood pressure 134/85, heart rate 90, satting 94% on room air. Anand catheter is listed with draining yellow urine, approximately 1750 over the past 24 hours. CARDIOVASCULAR: Regular rate and rhythm without murmurs, gallops, or rubs. LUNGS: Clear on the right, but rhonchi were noted on the left. ABDOMEN: Soft, nondistended, nontender with significant scars noted. HEAD AND NECK: There is no scleral icterus. There is no obvious JVD. He wore glasses but does not make significant eye contact. EXTREMITIES: He still has julien on his right BKA, his left has healed. EXAM: His testes were descended bilaterally and atrophic. His phallus was circumcised with significant penile edema as a Anand catheter was also on tension, so I removed the Anand catheter to release this tension and make sure that the balloon was not stuck in the prostate as it was prior to this manipulation. There were no lesions, erythema, or crepitus noted. Digital rectal exam revealed an average size prostate. It was smooth without nodules. LABORATORY DATA: CBC revealed anemia 9.2 and 28.3 with a platelet count of 116 , BUN and creatinine are 56 and 3.91, which is his baseline. Urinalysis from 1320 came in showed too numerous to count WBCs, 0-3 RBCs, 3+ bacteria, and 0-3 squamous cells with culture growing Pseudomonas, which is resistant to fluoroquinolones and he is currently on cefepime. There is no upper tract imaging, although Dr. Mcgregor also requested this. ASSESSMENT AND PLAN: A 52-year-old gentleman, who came in with presumed urosepsis. His antibiotics are being advised by Dr. Mcgregor. I would follow his recommendations. He also probably has BPH, but he could have a component of neurogenic bladder based on his diabetes and possible lack of sensation. I'd increase the tamsulosin to twice a day. I will get a CT scan to rule out any upper tract pathology as well as this can document any bladder or prostate abnormalities, which might prompt me to order finasteride as well. Otherwise, timed voiding and crede maneuver can be initiated if there is concern about his emptying. I would remove the Anand catheter overnight, elevate the penis as you would with any edematous organ or limb, and monitor. KARLO
--- NOTE | 2018-05-23 10:40 | PQF ---
[employer] Officer Crystal Reports Winform ViewerIRIS BLUE VINAYA KUMAR MD [id number] [id number] CLINICAL DOCUMENTATION CLARIFICATION FORM: POST DISCHARGE Addendum to original discharge summary date: ____ Late entry note date: __ Please exercise your independent, professional judgment in responding to the clarification form. Clinical indicators are provided on the bottom of this form for your review Please check appropriate box(s) to clarify if the following diagnosis has been ruled in or ruled out: ____COMPLICATION UTI INFECTION DUE TO SELF CATHETERIZATION (CDI/Coding list diagnosis here) [ ] Ruled in diagnosis [ ] Continue to treat [ ] Resolved [ ] Ruled out diagnosis [ x ] Cannot rule out diagnosis [ ] Other diagnosis [ ] Unable to determine In addition, please specify: Present on Admission (POA): [ ] Yes [ ] No [ x ] Unable to determine For continuity of documentation, please document condition throughout progress notes and discharge summary. Thank You. CLINICAL INDICATORS - SIGNS / SYMPTOMS / LABS To support the diagnosis To support resolution of diagnosis RISK FACTORS To support diagnosis- H&P- URINARY TRACT INFECTION. THE PATIENT WITH INTERMITTENT BLADDER, SELF CATHETERIZATION LIKELY UNDERLYING ETIOLOGY. THE PATIENT ALL SO WITH A HISTORY OF URINARY RETENTION. TREATMENTS To support diagnosis- CEFEPIME 2 GRAM IV q. 12 hours [employer] Officer [employer] Win[employer] Viewer (This form is maintained as a part of the permanent medical record) 2014 [employer]. All Rights Reserved Miesha [email or web address] [phone] KARLO
--- NOTE | 2018-05-23 10:49 | PQF ---
[employer] Operator Crystal Reports Winform ViewerTHATCHER,IRIS LEE, ARELY FLOYD MD [id number] CLINICAL DOCUMENTATION CLARIFICATION FORM: POST DISCHARGE Addendum to original discharge summary date: ____ Late entry note date: ___Sepsis due to healthcare associated pneumonia Please exercise your independent, professional judgment in responding to the clarification form. Clinical indicators are provided on the bottom of this form for your review. PLEASE CLARIFY THE ORGANISM CAUSING THE SEPSIS AND THE DIAGNOSIS CAUSING SEPSIS UTI OR PNEUMONIA IF ABLE TO DETERMINE. THANK YOU Please check appropriate box(es): [ ] Sepsis due Pseudomonas [ x ] Sepsis due to: (Pna, UTI, gangrenous gall bladder, etc.) __Pneumonia Due to: [ ] Device (please specify) [ ] Implant [ ] Graft [ ] Infusion [ ] SIRS due to non-infectious process (please specify etiology) [ ] with organ dysfunction [ ] without organ dysfunction [ ] Severe sepsis with acute organ dysfunction of: (Examples: respiratory failure, encephalopathy, acute kidney failure, other) [ ] Septic Shock [ ] Localized infection without sepsis [ ] Other diagnosis [ ] Unable to determine In addition, please specify: Present on Admission (POA): [ x ] Yes [ ] No [ ] Unable to determine For continuity of documentation, please document condition throughout progress notes and discharge summary. Thank You. CLINICAL INDICATORS - SIGNS / SYMPTOMS / LABS Altered mental status Fever or hypothermia (<96.8 F/36 C or > 100.4 F/38C) Respiratory rate >20/min, Hypoxemia, SBP <100mmHg Metabolic acidosis Lactic Acid >2mmol/L, Increase BUN/Pillow Filler, decrease GFR, coag abnormalities, thrombocytopenia-plts <100k Oliguria Shock-hypotension resistant to IV fluid boluses WBC count (>12,000/mm^4 or <4000/mm^3 or 10% neuts, 10% bands) Hyperglycemia in absence of diabetes mellitus Positive blood cultures RISK FACTORS [employer] Jogger Operator Crystal Reports Winform ViewerInfection/Bacteremia Pneumonia, UTI Diabetes Surgery / surgical instrumentation / trauma Ruptured/perforated bowel, ruptured appendi Advancing Age TREATMENTS: Initiation Sepsis Protocol ICU Daily CBC Blood/sputum/wound cultures ID Consult IV antibiotics - broad spectrum IV ?uids Vasopressors, meds (This form is maintained as a part of the permanent medical record) 2014 [employer] All Rights Reserved Miesha [email or web address] [phone] [email or web address]
== END 2018-05-19 18:08 | DRG 871 ==
LOC: ERS 04:14 → T4-B 08:37 → CCU 05-15 10:46 → T4-A 05-17 10:23
PROVIDERS: ADMIT Internal Medicine; ATTEND Internal Medicine
DX: A41.52 Sepsis due to Pseudomonas (principal); R65.21 Severe sepsis with septic shock; J18.9 Pneumonia, unspecified organism; T83.518A Infection and inflammatory reaction due to other urinary catheter, initial encounter; N39.0 Urinary tract infection, site not specified; I12.0 Hypertensive chronic kidney disease with stage 5 chronic kidney disease or end stage renal disease; N18.5 Chronic kidney disease, stage 5; N17.9 Acute kidney failure, unspecified; J91.8 Pleural effusion in other conditions classified elsewhere; Z94.0 Kidney transplant status; Z94.83 Pancreas transplant status; E87.1 Hypo-osmolality and hyponatremia; E10.22 Type 1 diabetes mellitus with diabetic chronic kidney disease; N40.0 Benign prostatic hyperplasia without lower urinary tract symptoms; E10.319 Type 1 diabetes mellitus with unspecified diabetic retinopathy without macular edema; H54.40 Blindness, one eye, unspecified eye; E78.5 Hyperlipidemia, unspecified; E03.9 Hypothyroidism, unspecified; E10.51 Type 1 diabetes mellitus with diabetic peripheral angiopathy without gangrene; D63.1 Anemia in chronic kidney disease; F17.220 Nicotine dependence, chewing tobacco, uncomplicated; Y95 Nosocomial condition; E87.5 Hyperkalemia; E10.21 Type 1 diabetes mellitus with diabetic nephropathy; N25.89 Other disorders resulting from impaired renal tubular function; I51.9 Heart disease, unspecified; F32.9 Major depressive disorder, single episode, unspecified; N31.9 Neuromuscular dysfunction of bladder, unspecified; Z79.4 Long term (current) use of insulin; Z79.899 Other long term (current) drug therapy; Z89.512 Acquired absence of left leg below knee; Z89.511 Acquired absence of right leg below knee; Y73.8 Miscellaneous gastroenterology and urology devices associated with adverse incidents, not elsewhere classified; Y84.6 Urinary catheterization as the cause of abnormal reaction of the patient, or of later complication, without mention of misadventure at the time of the procedure; Y92.009 Unspecified place in unspecified non-institutional (private) residence as the place of occurrence of the external cause
CPT/HCPCS: 36415; 36416; 71045; 74176; 80048; 80053; 80197; 80202; 81003; 81015; 82274; 82533; 82805; 83605; 83735; 84100; 84484; 85007; 85025; 85027; 86850; 86900; 86901; 87040; 87077; 87086; 87186; 87324; 87449; 93005; 93010; 93306; 94640; 94760; 96361; 96365; 96375; A4216; J0456; J0692; J0696; J1644; J1720; J1815; J3370; J3475; J7050; J7070; J7506; J7507; J7620

== ENCOUNTER 2022-01-16 08:06 | Emergency (ER) | payer MEDICARE, MEDICAID ==
[2022-01-16 08:45] LABS: #Eosinphils 0.4 thou/uL (0.0-0.7); #Lymphocytes 0.6 thou/uL (1.20-3.40); #Monocytes 0.4 thou/uL (0.11-0.59); %Basophils 0.3 % (0.0-1.0); %Eosinophils 5.2 % (0.0-10.0); %Lymphocytes 8.6 % (21.0-51.0); %Monocytes 4.8 % (0.0-10.0); Hemoglobin 9.5 g/dL (14.0-18.0); Mean Corpuscular Hemoglobin 29.5 pg (27.0-31.0); Mean Corpuscular Volume 95.2 fL (78.0-98.0); Mean Platelet Volume 8.3 fL (7.4-10.4); Platelet Count 224 thou/uL (130-400); RBC Distribution Width 15.6 % (11.5-14.5); Red Blood Cell (RBC) Count 3.22 mill/uL (4.70-6.10); White Blood Cell (WBC) Count 7.4 thou/uL (4.8-10.8)
[2022-01-16] MEDS ORDERED: hydrALAZINE 20 MG/ML VIAL ONE (09:15)
[2022-01-16 09:44] LABS: ALT (SGPT) Less than 7 U/L (8-55); AST (SGOT) 7 U/L (5-34); Albumin 3.4 g/dL (3.5-5.0); Alkaline Phosphatase 55 U/L (40-110); Anion Gap 14 mmol/L (10-20); BUN (Urea Nitrogen) 62 mg/dL (8.4-25.7); Bilirubin, Total 0.6 mg/dL (0.2-1.2); Calc. Creatinine Clearance 0 mL/min (70-130); Calcium 7.9 mg/dL (7.8-10.44); Carbon Dioxide 28 mmol/L (22-29); Chloride 102 mmol/L (98-107); Glucose 85 mg/dL (70-105); Potassium 4.8 mmol/L (3.5-5.1); Protein, Total 6.4 g/dL (6.0-8.3); Sodium 139 mmol/L (136-145)
== END 2022-01-16 10:58 | disposition home or self-care (01) ==
LOC: ERS 08:06
DX: I12.0 Hypertensive chronic kidney disease with stage 5 chronic kidney disease or end stage renal disease (principal); N18.6 End stage renal disease; D63.1 Anemia in chronic kidney disease; E87.70 Fluid overload, unspecified; E78.5 Hyperlipidemia, unspecified; E03.9 Hypothyroidism, unspecified; F17.220 Nicotine dependence, chewing tobacco, uncomplicated; Z79.899 Other long term (current) drug therapy; Z79.82 Long term (current) use of aspirin; Z99.2 Dependence on renal dialysis
CPT/HCPCS: 36415; 71045; 80053; 85025; 93005; 96374; J0360